=== PATIENT | female | born 1980 | race Caucasian/White ===

== ENCOUNTER 2019-03-06 00:09 | Outpatient (CLI) | payer BC, SELFPAY ==
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
[2019-03-06 10:39] LABS: Potassium 3.8 mmol/L (3.5-5.1)
== END 2019-03-06 00:29 ==
PROVIDERS: PCP Nurse Practitioner Adult Health; Visit Provider Nurse Practitioner Adult Health
DX: R00.2 Palpitations (principal); R00.0 Tachycardia, unspecified; E87.6 Hypokalemia
CPT/HCPCS: 36415; 84132; 93017

== ENCOUNTER 2019-09-25 16:23 | Emergency (ER) | payer BC, SELFPAY ==
[2019-09-25 16:25] VITALS: BP 126/89; PULSE 68; RESP 18; TEMP 36.4; O2SAT 99
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
--- NOTE | 2019-09-25 16:55 | ED.GENADUL_ITS ---
Discharge Plan Disposition Patient Disposition: HOME Condition: Stable Discharge Details Chief Complaint: Seizure Clinical Impression: Complex partial seizure disorder Primary Care Provider: Monserrat Bennett ED Provider: Eh Domínguez Home Meds and New Rx's Prescriptions: New lorazepam [Ativan] 0.5 mg tablet 0.5 mg PO QHS PRN (Reason: sleep) Qty: 1 RF: 1 Continued arnica 20 % Tincture RF: 0 Discharge Instructions Instructions: Recurrent Seizures in Adults (ED) Additional Instructions: May use single Ativan at bedtime, may take with Arnica. Do not take with alcohol. Follow-up with neurology in clinic as discussed. We will ask care management to assist with this referral. Return for progressive symptoms, or any other acute/emergent concern. Medical Decision Making 39-year-old female states that increased dressed in her life recently. She is a history of partial complex seizure which she describes as a sensation of intermittent aura with occasional word finding difficulty, but without syncope/incontinence/tonic clonic movement. States this is been a pattern for her in adulthood. Previously seen by neurology at [facility] and underwent unremarkable MRI. No previous antiseizure medications. She has recently started to take Arnica. Her vital signs are normal, her neurologic exam is within normal limits and there is no evidence of physical illness. Do think she likely has increased stress and possible minor partial seizure disorder. We will trial single dose of 0.5 mg of Ativan at bedtime tonight. Do not feel that there is an indication tonight to initiate long-term antiepileptic, but do feel that she will benefit from consultation and we will ask her to follow-up with neurology/make the referral. She will return for progression of symptoms, development of headache, or any other acute concerns. [facility] General Mode of arrival: ambulatory . Date/Time Provider Initiated Documentation: 09/25/19 16:39 . Limitations to Documentation: no limitations . Information obtained by: patient . History of Present Illness 39 year old F presents to the emergency department with the chief complaint of Partial complex seizure, described as mild, Patient reports no radiation. Patient started experiencing this day(s) and it has been intermittent. No relieving factors improve symptom(s), No exacerbating factors reported . Patient notes other (No tonic-clonic movements); denies confusion, fever/chills, headaches, malaise, shortness of breath, syncope and weakness. Patient did receive the following treatments prior to arrival, none Related Data Home Medications Medication Instructions Recorded Confirmed arnica 09/25/19 lorazepam [Ativan] 0.5 mg PO QHS PRN #1 tab 09/25/19 Previous Rx's Medication Instructions Recorded lorazepam [Ativan] 0.5 mg PO QHS PRN #1 tab 09/25/19 Allergies Allergy/AdvReac Type Severity Reaction Status Date / Time clindamycin Allergy Severe Anaphylaxsi Unverified 09/25/19 16:30 s Penicillins Allergy Intermediate Hives Unverified 09/25/19 16:30 Sulfa (Sulfonamide Allergy Skin Rash Unverified 09/25/19 16:30 Antibiotics) General Stated Complaint: Seizure DINO: 3 Review of Systems Narrative: Increased stress due to financial strain, 8 systems reviewed and otherwise negative. [facility] Social History Smoking/Tobacco Use Status: Former Tobacco Use Drug use: Never Substance use type: does not use Exam Narrative Exam Narrative: GEN: awake, alert, oriented 3. Pleasant, well groomed, interactive. HEAD: Normocephalic, atraumatic ENT: Mucous membranes moist, oropharynx unremarkable, External ear exam unremarkable EYES: PERRL, EOMI NECK: Full ROM, no MARIAJOSE, no menigismus CHEST/RESP: Nontender, clear to auscultation bilateral, no wheeze/rhonchi/rales CARDIOVASCULAR: RRR, no murmur, rub fidel. 2+ Rad pulse bilateral ABDOMEN: Soft, nontender, no mass. +Bowel sounds EXT: Full ROM, no edema, no rash Neuro: Grossly normal neurologic exam, conversant, interactive. Cranial nerves II through XII intact, [id number] intact, Romberg negative, motor graded 5 out of 5 throughout. Psych: Speech fluent, thoughts congruent, affect normal Course Vital Signs Vital signs: Vital Signs Temperature 36.4 C L 09/25/19 16:25 Pulse 68 09/25/19 16:25 Respiratory Rate 18 09/25/19 16:25 Blood Pressure 126/89 09/25/19 16:25 Pulse Oximetry 99 09/25/19 16:25 Temperature 36.4 C L 09/25/19 16:25 Temperature Source Skin 09/25/19 16:25 Pulse 68 09/25/19 16:25 Respiratory Rate 18 09/25/19 16:25 Respiratory Effort Non-Labored 09/25/19 16:37 Respiratory Depth Normal 09/25/19 16:37 Respiratory Pattern Normal 09/25/19 16:37 Blood Pressure 126/89 09/25/19 16:25 Blood Pressure Position Sitting 09/25/19 16:25 Pulse Oximetry 99 09/25/19 16:25 Oxygen Delivery Method Room Air 09/25/19 16:25 Oxygen Flow Rate 0 09/25/19 16:25 Pain Level 0 09/25/19 16:25
[2019-09-25 17:08] VITALS: BP 130/88; PULSE 68; O2SAT 96
--- NOTE | 2019-09-25 17:11 | NUR.NOTE ---
Nursing Note: Faxed to [facility] Neurology referral for follow up. Mahi Salazar.
== END 2019-09-25 17:11 | disposition home or self-care (01) ==
PROVIDERS: Emergency Provider Emergency Medicine; PCP Nurse Practitioner Adult Health
DX: G40.209 Localization-related (focal) (partial) symptomatic epilepsy and epileptic syndromes with complex partial seizures, not intractable, without status epilepticus (principal)
CPT/HCPCS: 99283

== ENCOUNTER 2020-09-01 20:03 | Emergency (ER) | payer MEDICAID, SELFPAY ==
--- NOTE | 2020-09-01 20:00 | DI.CT_ITS ---
EXAM: CT RENAL COLIC WO CLINICAL HISTORY: left flank pain, r/o stone, divertics. TECHNIQUE: Imaging Protocol: Axial computed tomography images with coronal and sagittal reformatted images were created and reviewed. COMPARISON: No exams were available for comparison FINDINGS: ABDOMEN: Lung Bases: Normal where visualized. Liver: Normal density. No measurable mass. Gallbladder and biliary tract: There is a 1.7 cm calcified stone in the gallbladder. No biliary duct al dilatation. No inflammatory signs around the gallbladder. Pancreas: Normal density, no abnormal calcifications or inflammatory process. Spleen: Normal. Kidneys: Normal size, contour and axis.There is a 7 mm stone at the left UPJ. It causes moderate hyd ronephrosis. No masses seen. Adrenal glands: No mass is seen. Lymph nodes: Within normal limits. Abdominal Aorta: Abdominal portion non-dilated. PELVIS: Bladder:Symmetric distention, no gross wall thickening. Bowel: No obstruction or bowel wall thickening. Appendix is unremarkable. Peritoneal cavity: No ascites, collection or mesenteric inflammatory response Reproductive organs: There is a small amount of fluid seen within the endometrial canal which is like ly normal. Bones: Mild degenerative changes. Soft Tissues: Within normal limits. IMPRESSION: 1. 7 mm left UPJ stone causing moderate hydronephrosis. 2. Cholelithiasis without signs to suggest acute cholecystitis. RADIATION DOSE DELIVERED: 618.6mGy.cm Total DLP DATA REPOSITORY: All CT scans at this facility are submitted to the National Radiology Data Registry (NRDR) Dose Index Registry (DIR) with the [employer] (A[employer]). RADIATION OPTIMIZATION: All CT scans at this facility use at least one of these dose optimization te chniques: automated exposure control; mA and/or kV adjustment per patient size (includes targeted exa ms where dose is matched to clinical indication); or iterative reconstruction.
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
[2020-09-01] MEDS: Normal Saline 1,000 ML 1000 ML IV (20:20)
[2020-09-01 20:29] VITALS: BP 125/82; PULSE 65; RESP 18; TEMP 36.6; O2SAT 98
[2020-09-01 20:33] LABS: Abs Immature Grans 0.02 10^3/uL (0.0-0.06); Absolute Basophil Count 0.06 10^3/uL (0.0-0.2); Absolute Eosinophil Count 0.39 10^3/uL (0.0-0.7); Absolute Lymphocyte Count 2.24 10^3/uL (1.2-3.4); Absolute Monocyte Count 0.53 10^3/uL (0.1-0.8); Absolute Neutrophil Count 7.04 10^3/uL (1.2-6.7); Basophils % 0.6; Eosinophils % 3.8; HCT 36.1 % (36.0-46.0); HGB 12.3 g/dL (11.2-15.7); Immature Grans % 0.2; Lymphocytes % 21.8; MCH 32.2 pg (27.0-33.0); MCHC 34.1 % (32.0-36.0); MCV 94.5 fL (80-95); MPV 11.2 fL (8.0-11.0); Monocytes % 5.2; Neutrophils % 68.4; Nucleated RBC 0 %; Platelet Count 158 10^3/uL (130-400); RBC 3.82 10^6/uL (3.93-5.22); RDW 11.9 % (11.7-14.6); RDW-SD 41.7 fL; WBC 10.28 10^3/uL (4.4-10.8)
[2020-09-01] MEDS: Ketorolac 30 MG/ML VIAL IVP (20:35)
[2020-09-01 20:40] LABS: Bilirubin Negative (Negative); Blood Large (Negative); Clarity Cloudy (Clear); Glucose Negative (Negative); Ketones Trace mg/dL (Negative); Leukocyte Esterase Negative (Negative); Nitrite Negative (Negative); Specific Gravity >= 1.030 (1.005-1.025); Urobilinogen 0.2 EU/dL (Up TO 0.2); pH 5.5 (5-8)
[2020-09-01 20:45] LABS: ALT 37 U/L (14-59); AST 23 U/L (15-37); Albumin 3.7 g/dL (3.4-5.0); Alkaline Phosphatase 64 U/L (46-116); Anion Gap 7.3 mmol/L (3-11); BUN 13 mg/dL (7-18); Bilirubin, Total 0.2 mg/dL (0.2-1.0); CO2 25.7 mmol/L (21.0-32.0); Calcium 8.6 mg/dL (8.5-10.1); Chloride 104 mmol/L (98-107); Glucose 121 mg/dL (74-106); Potassium 3.6 mmol/L (3.5-5.1); Sodium 137 mmol/L (136-145); Total Protein 6.8 g/dL (6.4-8.2)
[2020-09-01 20:50] LABS: Bacteria Rare HPF (Negative); C & S Indicated? No; Casts Negative LPF (Negative); Crystals Negative HPF (Negative); Epithelial Cells Few HPF (Negative); Mucus Negative (Negative); RBC 20-50 HPF (0-2)
--- NOTE | 2020-09-01 21:34 | DI.VRAD_ITS ---
PROCEDURE INFORMATION: Exam: CT Abdomen And Pelvis Without Contrast Exam date and time: 09/01/2020 9:00 PM Age: 39 years old Clinical indication: Other: L flank pain; Patient HX: Sudden onset left flank pain TECHNIQUE: Imaging protocol: Computed tomography of the abdomen and pelvis without contrast. Radiation optimization: All CT scans at this facility use at least one of these dose optimization techniques: automated exposure control; mA and/or kV adjustment per patient size (includes targeted exams where dose is matched to clinical indication); or iterative reconstruction. COMPARISON: No relevant prior studies available. FINDINGS: Mediastinal space: There is small hiatal hernia. Liver: Normal. No mass. Gallbladder and bile ducts: There is 1.7 cm calcified stone in gallbladder. There is no signs of acute inflammation. Pancreas: Normal. No ductal dilation. Spleen: Normal. No splenomegaly. Adrenal glands: Normal. No mass. Kidneys and ureters: There is mild to moderate left hydronephrosis with 7mm stone noted in the left proximal ureter at pelvic ureteral junction. There is mild stranding adjacent to the left renal pelvis. Urinary bladder is unremarkable. Stomach and bowel: Unremarkable. No obstruction. No mucosal thickening. Appendix: Appendix is normal. Intraperitoneal space: Unremarkable. No free air. No significant fluid collection. Vasculature: Unremarkable. No abdominal aortic aneurysm. Lymph nodes: Unremarkable. No enlarged lymph nodes. Urinary bladder: See Kidneys and ureters finding. Reproductive: Uterus is elongated and anteverted. There is fluid within endometrial cavity which could be normal. There is air possibly in the posterior fornix of vagina. Adnexa are grossly unremarkable. Bones/joints: No acute fracture. Soft tissues: Unremarkable. IMPRESSION: 1. 7 mm obstructive stone in the proximal left ureter at the pelvic ureter junction with mild to moderate proximal left hydronephrosis. There is mild fat stranding, likely due to associated inflammation. 2. Cholelithiasis without signs of acute inflammation. Dictated and Authenticated by: Jorge L Hoover MD. Ordering:LONG Simons MD
== END 2020-09-01 22:55 | disposition home or self-care (01) ==
PROVIDERS: Emergency Provider Student in an Organized Health Care Education/Training Program; PCP Nurse Practitioner Adult Health
DX: N20.0 Calculus of kidney (principal)
CPT/HCPCS: 80053; 81025; 96361; 96374; 99285; 74176; 81003; 81015; 85025; 99284; J1885

== ENCOUNTER 2020-11-09 16:49 | Emergency (ER) | payer MEDICAID, SELFPAY ==
[2020-11-09 16:59] VITALS: BP 125/84; PULSE 68; RESP 16; TEMP 36.5; O2SAT 100
--- NOTE | 2020-11-09 17:00 | DI.CT_ITS ---
EXAM: CT RENAL COLIC WO CLINICAL HISTORY: Left Flank pain, Hx kidney stone. TECHNIQUE: Imaging Protocol: Axial computed tomography images with coronal and sagittal reformatted images were created and reviewed. CONTRAST MATERIAL: Noncontrast COMPARISON: CT CT RENAL COLIC WO from 09/01/[address] RENAL COLIC WO from 09/01/2020 FINDINGS: ABDOMEN: Lung Bases: Normal where visualized. Liver: Normal attenuation. No measurable mass. Gallbladder and biliary tract: Calcified stone, unchanged from previous exam. There is no abnormal g allbladder distention or wall thickening.. Pancreas: Normal density, no calcifications or inflammatory process. Spleen: Normal. Kidneys: Normal size, contour and axis. A stone is again noted in the proximal left ureter measuring 7 millimeters. This causes moderate left hydronephrosis. Mild debris is seen within the left renal pelvis. There is stable dilatation of the left renal pelvis. There is no perinephric collection or surrounding inflammation. No masses seen. Adrenal glands: No masses seen. Abdominal Aorta: Abdominal portion non-dilated. PELVIS: Bladder: Symmetric distention, no gross wall thickening. Bowel: No obstruction or bowel wall thickening. Peritoneal cavity: No ascites, collection or mesenteric inflammatory response. A small amount of inc reased density is questioned in the appendix ,however there is no evidence of inflammation. Bones: Within normal limits. IMPRESSION: No significant change in 7 millimeters stone in the proximal left ureter causing moderate hydronephro sis. No new abnormalities are seen. RADIATION DOSE DELIVERED: 559.26mGy.cm Total DLP DATA REPOSITORY: All CT scans at this facility are submitted to the National Radiology Data Registry (NRDR) Dose Index Registry (DIR) with the [employer] (A[employer]). RADIATION OPTIMIZATION: All CT scans at this facility use at least one of these dose optimization te chniques: automated exposure control; mA and/or kV adjustment per patient size (includes targeted exa ms where dose is matched to clinical indication); or iterative reconstruction.
[2020-11-09 17:07] LABS: Bilirubin Negative (Negative); Blood Large (Negative); Clarity Cloudy (Clear); Glucose Negative (Negative); Ketones 15 mg/dL (Negative); Leukocyte Esterase Negative (Negative); Nitrite Negative (Negative); Specific Gravity >= 1.030 (1.005-1.025); Urobilinogen 0.2 EU/dL (Up TO 0.2); pH 5.5 (5-8)
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
[2020-11-09 17:15] LABS: Bacteria Few HPF (Negative); RBC >50 HPF (0-2)
[2020-11-09 17:16] LABS: Casts Negative LPF (Negative); Crystals Negative HPF (Negative); Mucus Trace (Negative)
[2020-11-09 17:17] LABS: C & S Indicated? No; Epithelial Cells Moderate HPF (Negative)
--- NOTE | 2020-11-09 17:57 | DI.VRAD_ITS ---
PROCEDURE INFORMATION: Exam: CT Abdomen And Pelvis Without Contrast Exam date and time: 11/09/2020 5:25 PM Age: 40 years old Clinical indication: Abdominal pain TECHNIQUE: Imaging protocol: Computed tomography of the abdomen and pelvis without contrast. COMPARISON: CT RENAL COLIC WO 09/01/2020 10:02 PM FINDINGS: Liver: Normal. No mass. Gallbladder and bile ducts: There is redemonstration of rim calcified stone measuring up to 1.7 cm in the neck of the gallbladder. There is no pericholecystic fluid collection or gallbladder wall edema. Pancreas: Normal. No ductal dilation. Spleen: Normal. No splenomegaly. Adrenal glands: Normal. No mass. Kidneys and ureters: There is redemonstration of obstructive stone noted in the left proximal ureter measuring up to 7 mm. There is moderate left hydroureter and hydronephrosis. There is mild densities noted in the left renal pelvis which might reflect mild debris. Stomach and bowel: Unremarkable. No obstruction. No mucosal thickening. Appendix: Appendix is normal in size. There is minimal density noted in tip of the appendix which could reflect mild appendicolith. There is no inflammation. Intraperitoneal space: Unremarkable. No free air. No significant fluid collection. Vasculature: Unremarkable. No abdominal aortic aneurysm. Lymph nodes: Unremarkable. No enlarged lymph nodes. Urinary bladder: Unremarkable as visualized. Reproductive: Uterus and adnexa are normal. Bones/joints: Unremarkable. No acute fracture. Soft tissues: Unremarkable. IMPRESSION: 1. Obstructive stone measuring up to 7 mm in the left proximal ureter. This garcia also previously noted. There has been slight interval increase in moderate left proximal hydroureter and hydronephrosis. There are faint densities noted in the left renal pelvis which could reflect debris. There is stranding adjacent to the proximal left ureter and left renal pelvis which could be due to inflammation or associated infection. 2. Stable cholelithiasis without signs of acute inflammation. Dictated and Authenticated by: Jorge L Hoover MD. Ordering:LEROY Parrish MD
[2020-11-09 18:25] LABS: Abs Immature Grans 0.02 10^3/uL (0.0-0.06); Absolute Basophil Count 0.04 10^3/uL (0.0-0.2); Absolute Eosinophil Count 0.15 10^3/uL (0.0-0.7); Absolute Lymphocyte Count 1.34 10^3/uL (1.2-3.4); Absolute Monocyte Count 0.31 10^3/uL (0.1-0.8); Absolute Neutrophil Count 5.24 10^3/uL (1.2-6.7); Basophils % 0.6; Eosinophils % 2.1; HCT 37.3 % (36.0-46.0); HGB 12.5 g/dL (11.2-15.7); Immature Grans % 0.3; Lymphocytes % 18.9; MCH 31.7 pg (27.0-33.0); MCHC 33.5 % (32.0-36.0); MCV 94.7 fL (80-95); MPV 11.3 fL (8.0-11.0); Monocytes % 4.4; Neutrophils % 73.7; Nucleated RBC 0 %; Platelet Count 147 10^3/uL (130-400); RBC 3.94 10^6/uL (3.93-5.22); RDW 11.7 % (11.7-14.6); RDW-SD 40.7 fL
[2020-11-09] MEDS: Tamsulosin 0.4 MG CAPCR PO (18:30)
[2020-11-09 18:36] LABS: ALT 76 U/L (14-59); AST 44 U/L (15-37); Albumin 3.9 g/dL (3.4-5.0); Alkaline Phosphatase 55 U/L (46-116); Anion Gap 6.1 mmol/L (3-11); BUN 11 mg/dL (7-18); Bilirubin, Total 0.3 mg/dL (0.2-1.0); CO2 28.9 mmol/L (21.0-32.0); CREATININE 0.81 mg/dL (0.55-1.02); Calcium 8.8 mg/dL (8.5-10.1); Chloride 103 mmol/L (98-107); Glucose 123 mg/dL (74-106); Potassium 3.5 mmol/L (3.5-5.1); Sodium 138 mmol/L (136-145)
[2020-11-09] MEDS: Ketorolac 30 MG/ML VIAL IVP (19:06)
[2020-11-09] MEDS: Ketorolac 10 MG TAB PO (19:36)
[2020-11-09] MEDS: Ondansetron O.D.T. 4 MG TABEF PO (19:36)
[2020-11-09] MEDS: Ketorolac 10 MG TAB 20 MG PO (20:05)
--- NOTE | 2020-11-10 06:03 | NUR.NOTE ---
Referral faxed to Urology for follow up care regarding todays visit, Nursing Note:
== END 2020-11-09 20:10 | disposition home or self-care (01) ==
PROVIDERS: Emergency Provider Registered Nurse Emergency; PCP Nurse Practitioner Adult Health
DX: N13.2 Hydronephrosis with renal and ureteral calculous obstruction (principal)
CPT/HCPCS: 36415; 80053; 81025; 96374; 99284; 74176; 81003; 81015; 85025; J1885

== ENCOUNTER 2020-12-09 01:39 | Outpatient (CLI) | payer MEDICAID, SELFPAY ==
--- NOTE | 2020-12-09 09:00 | DI.US_ITS ---
EXAM: US RENAL CLINICAL HISTORY: left ureteral stone N13.2 HYDRONEPHROSIS W/ RENAL AND URETERAL OBSTRUCTION. TECHNIQUE: Jang scale, color and spectral Doppler were used. COMPARISON: CT CT RENAL COLIC WO from 11/09/2020 FINDINGS: Renal size in cm: Right: 9.2. Left: 11.7. Echogenicity: Normal. Hydronephrosis: No. Cyst or mass: No. Nephrolithiasis: There is a question of a 4 mm echogenic focus in the midpole of the left kidney whic h may represent a nonobstructing stone. Other findings: None. Bladder:Normal. Ureteral jets: Right: Visualized and unremarkable. Left: Visualized and unremarkable. Prevoid vol:200 cc Postvoid vol:0 cc Renal color flow: Symmetric and within normal limits. IMPRESSION: 1. No evidence of hydronephrosis. 2. 4 mm echogenic focus in the midpole of the left kidney which may represent a nonobstructing stone. DATA REPOSITORY:
== END 2020-12-09 01:40 | disposition home or self-care (01) ==
LOC: DI 01:39
PROVIDERS: PCP Nurse Practitioner Adult Health; Visit Provider Nurse Practitioner Gerontology
DX: N20.1 Calculus of ureter (principal)
CPT/HCPCS: 76770

== ENCOUNTER 2021-02-11 17:45 | Emergency (ER) | payer MEDICAID, SELFPAY ==
[2021-02-11] VITALS (11 sets, daily range): BP systolic 117–139; BP diastolic 67–87; PULSE 60–104; RESP 16–18; TEMP 36.4; O2SAT 96–100
--- NOTE | 2021-02-11 17:56 | W.ED.GENAD ---
Discharge Plan Disposition Patient Disposition: HOME Condition: Stable Discharge Details Clinical Impression: Kidney stone Primary Care Provider: Monserrat Bennett ED Provider: Claudia Sal Home Meds and New Rx's Prescriptions: New ondansetron 4 mg tablet,disintegrating 4 mg PO TID PRN (Reason: nausea and vomiting) Qty: 6 RF: 0 tramadol 50 mg tablet 50 mg PO TID PRN (Reason: pain) Qty: 10 RF: 0 Continued B-complex with vitamin C Tablet 1 tab PO DAILY RF: 0 ascorbic acid (vitamin C) 250 mg tablet 250 mg PO DAILY RF: 0 magnesium 200 mg tablet 200 mg PO HS RF: 0 ibuprofen 200 mg Tablet 400 mg PO Q6H PRNRF: 0 ketorolac 10 mg tablet 10 mg PO TID PRN PRNRF: 0 Discharge Instructions Instructions: Kidney Stones (ED) Additional Instructions: Drink plenty of fluids and get plenty of rest. Take your ketorolac that you have at home as needed and directed for pain. Take the tramadol for pain not relieved with ketorolac or Tylenol. Take the Zofran as needed and directed for nausea and vomiting. Call Dr. Duong's office on to schedule a follow-up appointment for reevaluation. Return immediately to the emergency department if you develop any worsening or new concerning symptoms such as persistent pain, vomiting, fever or any other concerns. Referrals: Leonidas Duong MD [ [facility] STAFF PHYSICIAN] - Discharge Data Discharge Date/Time-TO BE ENTERED AT DEPARTURE: 02/11/21 21:45 Discharge Physician: Claudia Sal Medical Decision Making 40-year-old female presents with left flank pain similar to previous kidney stones for the past hour. Vitals within normal limits. Patient appears uncomfortable. Abdomen is soft but tender in the suprapubic region. She has no CVA tenderness. Suspect most likely kidney stone. Patient is agreeable with plan for CT. She is referred for labs and imaging. As she vomited shortly after her oral Toradol at home, will give a dose of Toradol 15 mg IV x1 and Zofran and fluids and reassess. Labs and imaging reviewed. Normal white blood cell count and renal function. Urinalysis negative for infection. Case discussed with Dr. Duong who reviewed CT imaging. States he previously noted 7 and later stone has now migrated down from the pelvis to the UV junction. If patient's pain is tolerated, she can be discharged home with plan for follow-up with Dr. Duong in the office in 2 days. Patient reassessed and she states her pain is returning. She states she is not on any narcotic pain medication. We will give a dose of IV Tylenol. Patient states she cannot take Flomax due to it causing seizures. Will give a dose of IV Tylenol and reassess. Patient states she would rather hold on narcotics at this time. Patient reassessed and pain still present. She states nausea returning. Will give a dose of morphine IV and Phenergan and another dose of IV fluids and reassess. Patient reassessed and she vomited right after the Compazine but states her nausea is now better. She declined the IV morphine. Discussed with patient that as she seems uncomfortable, would recommend admission for IV fluids, IV antiemetics and IV pain medication. Patient states she is hesitant to take any IV pain medication and prefer to go home. Offered a dose of oral pain medication here but she declined. Patient states she would prefer not to have oxycodone but is agreeable with tramadol. She was given bottle of tramadol and Zofran to go and prescription sent electronically to her pharmacy. Patient placed on urology follow-up list for reevaluation. Usual and customary return precautions given prior to discharge. Just prior to discharge, patient began dry heaving again. I discussed with patient consideration for admission for IV medication and monitoring but she is still declining. She states she does not want any additional IV antiemetics at this time and would not want any IV antiemetics or IV narcotic medication if she stayed in the hospital. We will send with 2 tabs of Ativan to help her sleep tonight if needed. Medical Records Medical records reviewed: Yes I reviewed the patient's medical records. Imaging Data Radiologic Study: Radiologist's impression: CT Abdomen And Pelvis Without Contrast Exam date and time: 02/11/2021 6:13 PM Age: 40 years old Clinical indication: Other: L flank pain, R/O kidney stone; Prior surgery; Surgery date: 6+ months; Surgery type: 2 times TECHNIQUE: Imaging protocol: Computed tomography of the abdomen and pelvis without contrast. Radiation optimization: All CT scans at this facility use at least one of these dose optimization techniques: automated exposure control; mA and/or kV adjustment per patient size (includes targeted exams where dose is matched to clinical indication); or iterative reconstruction. COMPARISON: CT RENAL COLIC WO 11/09/2020 5:26 PM FINDINGS: Lungs: The visualized lung santamaria show mild bibasilar atelectasis. Liver: Normal size and homogeneous density. No liver mass is seen. Gallbladder and bile ducts: There is an 18 mm laminated gallstone in the gallbladder neck. No evidence of gallbladder wall thickening or pericholecystic fluid. Pancreas: Normal size and homogeneous density. No ductal dilation. Spleen: Normal. No splenomegaly. Adrenal glands: Normal. No mass. Kidneys and ureters: There is mild left hydronephrosis and hydroureter down to the left ureterovesical junction, where there is a partially obstructing 6 x 4 mm calculus (series 3, image 736; series 4, image 58). Stomach and bowel: There is no evidence of small bowel or colonic obstruction. Appendix: No evidence of appendicitis. Intraperitoneal space: No free air. No significant fluid collection. Vasculature: No abdominal aortic aneurysm. Lymph nodes: No enlarged retroperitoneal or mesenteric lymph nodes. Urinary bladder: The bladder shows a normal contour and is free of calcific opacities. Reproductive: In the right ovary, there is a 2.2 x 1.9 x 1.5 cm cyst. Bones/joints: At L1-L2, there are degenerative disc disease, anterior and posterior osteophytes. Soft tissues: Unremarkable. IMPRESSION: 1. A partially obstructing calculus at the left UVJ. 2. Cholelithiasis without evidence of acute cholecystitis. 3. A right ovarian cyst. Lab Data Lab results reviewed: Yes I reviewed the patient's lab results. Labs: Laboratory Tests Range/Units 02/11/21 02/11/21 02/11/21 18:00 18:19 18:19 WBC (4.4-10.8) 10^3/uL 8.86 RBC (3.93-5.22) 10^6/uL 4.11 Hgb (11.2-15.7) g/dL 12.9 Hct (36.0-46.0) % 38.4 MCV (80-95) fL 93.4 MCH (27.0-33.0) pg 31.4 MCHC (32.0-36.0) % 33.6 RDW (11.7-14.6) % 11.9 Plt Count (130-400) 10^3/uL 147 MPV (8.0-11.0) fL 11.1 H Immature Gran % 0.3 Neutrophils % 76.0 Lymphocytes % 15.7 Monocytes % 4.6 Eosinophils % 2.7 Basophils % 0.7 Nucleated RBC % % 0 Absolute Neutrophils (1.2-6.7) 10^3/uL 6.73 H Absolute Lymphocytes (1.2-3.4) 10^3/uL 1.39 Absolute Monocytes (0.1-0.8) 10^3/uL 0.41 Absolute Eosinophils (0.0-0.7) 10^3/uL 0.24 Absolute Basophils (0.0-0.2) 10^3/uL 0.06 Sodium (136-145) mmol/L 142 Potassium (3.5-5.1) mmol/L 3.4 L Chloride (98-107) mmol/L 104 Carbon Dioxide (21.0-32.0) mmol/L 30.2 Anion Gap (3-11) mmol/L 7.8 BUN (7-18) mg/dL 10 Creatinine (0.55-1.02) mg/dL 0.8 Estimated GFR/1.73 m2 (mL/min/1.73m2) >= 60.00 Glucose (74-106) mg/dL 108 H Calcium (8.5-10.1) mg/dL 8.9 Total Bilirubin (0.2-1.0) mg/dL 0.3 AST (15-37) U/L 28 ALT (14-59) U/L 51 Alkaline Phosphatase (46-116) U/L 55 Total Protein (6.4-8.2) g/dL 7.1 Albumin (3.4-5.0) g/dL 3.9 Lipase (73-393) U/L 90 Urine Color (Yellow) Yellow Urine Clarity (Clear) Clear Urine pH (5-8) 6.5 Ur Specific [place] (1.005-1.025) >= 1.030 H Urine Protein (Negative) mg/dL Negative Urine Ketones (Negative) mg/dL Negative Urine Blood (Negative) Trace-intact H Urine Nitrite (Negative) Negative Urine Bilirubin (Negative) Negative Urine Urobilinogen (Up TO 0.2) EU/dL 0.2 Ur Leukocyte Esterase (Negative) Negative Urine RBC (0-2) HPF 5-10 H Urine WBC (0-5) HPF Negative Ur Epithelial Cells (Negative) HPF Many Urine Crystals (Negative) HPF Negative Urine Bacteria (Negative) HPF Few Urine Mucus (Negative) Moderate Ur Culture Indicated? No Urine Glucose (Negative) mg/dL Negative HPI General Mode of arrival: ambulatory. Date/Time Provider Initiated Documentation: 02/11/21 17:55. Limitations to Documentation: no limitations. Information obtained by: patient. HPI Narrative: Patient is a 40-year-old female with a history of kidney stones who presents to the ED with a complaint of left flank pain with radiation to her left groin for the past hour. Patient states the pain feels similar to her previous kidney stones. Patient states she was diagnosed with a 7 mm long kidney stone a few months ago but was never noted to pass it but states her pain resolved. She states she is followed by Carlota Urban at urology. Patient took 10 mg of Toradol p.o. at home prior to arrival but vomited shortly after so does not think she completed the medication. Patient states she has vomited a few times and admits to nausea now. She denies any fever but does admit to urinary frequency and urgency. Related Data Home Medications Medication Instructions Recorded Confirmed B-complex with vitamin C 1 tab PO DAILY 04/15/20 02/11/21 ascorbic acid (vitamin C) 250 mg 250 mg PO DAILY 04/15/20 02/11/21 tablet magnesium 200 mg tablet 200 mg PO HS 04/15/20 02/11/21 ibuprofen 400 mg PO Q6H PRN 11/09/20 02/11/21 ketorolac 10 mg PO TID PRN PRN 02/11/21 02/11/21 ondansetron 4 mg PO TID PRN #6 tab 02/11/21 tramadol 50 mg PO TID PRN #10 tab 02/11/21 Previous Rx's Medication Instructions Recorded ondansetron 4 mg PO TID PRN #6 tab 02/11/21 tramadol 50 mg PO TID PRN #10 tab 02/11/21 Allergies Allergy/AdvReac Type Severity Reaction Status Date / Time clindamycin Allergy Severe Anaphylaxsi Unverified 02/11/21 17:53 s Penicillins Allergy Intermediate Hives Unverified 02/11/21 17:53 Sulfa (Sulfonamide Allergy Skin Rash Unverified 02/11/21 17:53 Antibiotics) tamsulosin [From Flomax] AdvReac Severe Verified 02/11/21 17:53 General Stated Complaint: FlankPain DINO: 3 Review of Systems All systems reviewed & are unremarkable except as noted in HPI and below Constitutional Constitutional: Reports as per HPI, Denies chills and Denies fever(s) Eyes Eyes: Denies blurry vision ENT Ears, Nose, Mouth, and Throat: Denies dizziness, Denies sore throat and Denies throat swelling Cardiovascular Cardiovascular: Denies chest pain and Denies dyspnea Respiratory Respiratory: Denies cough and Denies dyspnea Gastrointestinal Gastrointestinal: Reports abdominal pain, Denies diarrhea and Denies vomiting Genitourinary Genitourinary: Denies hematuria, Denies dysuria, Reports flank pain and Reports urinary urgency Musculoskeletal Musculoskeletal: Denies back pain and Denies numbness Integumentary/Breasts Skin/Breast: Denies lesions and Denies rash Neurologic Neurologic: Denies dizziness, Denies localized weakness and Denies numbness Allergic/Immunologic Allergic/Immunologic: Denies throat swelling [facility] Medical History (Updated 02/11/21 @ 20:47 by Claudia Sal DO) Focal epilepsy Kidney stone Migraine headache without aura Thrombocytopenia Surgical History S/P section x2 Family History Father Hypertension Brother Asthma Social History Smoking/Tobacco Use Status: Current every day Smoking risk assessment performed?: Yes Alcohol Intake: current Alcohol Intake frequency: holidays/special occasions only Drug use: Never Substance use type: does not use Household members: significant other and children Number of Children: 2 current occupation: Massage Therapist Seatbelt use: always Do you feel safe at home: Yes Do you feel safe in your relationship?: Yes Exam Const General: cooperative, uncomfortable and no acute distress Orientation: alert, awake and oriented x3 HENMT Head: normal to inspection Face and sinus: normal facial exam Eyes General: appearance normal, both eyes and all related structures EOM: EOM intact bilaterally Neck Neck: normal visual inspection and No submandibular swelling Lymphatic: no lymphadenopathy noted Chest Chest: normal inspection of the chest and no tenderness Resp Effort & Inspection: normal respiratory effort and able to speak in complete sentences Auscultation: clear to auscultation bilaterally Cardio Rate: regular rate Rhythm: regular rhythm GI Inspection: normal to inspection Palpation: soft, not firm, not rigid and tender suprapubicly Auscultation: normal bowel sounds Back/Spine/Pelvis Back: no CVA tenderness Skin General skin exam: no rashes or lesions noted Neuro General: patient alert, patient awake and patient oriented x3 Cognition: normal cognition Speech: speech normal Motor: muscle tone normal throughout Sensory Exam: no sensory deficits noted Extrem General: normal to inspection, full ROM, capillary refill normal, no calf tenderness bilaterally and no edema Psych Appearance: grossly normal Mental Status: mental status grossly normal Speech and Movement: speech and movement normal Affect: normal affect Course Vital Signs Vital signs: Vital Signs Temperature 97.5 F L 02/11/21 17:48 Pulse 66 02/11/21 17:48 Respiratory Rate 18 02/11/21 17:48 Blood Pressure 139/87 02/11/21 17:48 Pulse Oximetry 98 02/11/21 17:48 Temperature 97.5 F L 02/11/21 17:48 Temperature Source Temporal Artery Scan 02/11/21 17:48 Pulse 66 02/11/21 17:48 Respiratory Rate 18 02/11/21 17:48 Respiratory Effort Non-Labored 02/11/21 17:52 Blood Pressure 139/87 02/11/21 17:48 Blood Pressure Position Sitting 02/11/21 17:48 Pulse Oximetry 98 02/11/21 17:48 Oxygen Delivery Method Room Air 02/11/21 17:48 Oxygen Flow Rate 0 02/11/21 17:48 Pain Level 9 02/11/21 17:48
--- NOTE | 2021-02-11 18:00 | DI.CT_ITS ---
EXAM: CT RENAL COLIC WO CLINICAL HISTORY: L flank pain, r/o kidney stone. TECHNIQUE: Imaging Protocol: Axial computed tomography images with coronal and sagittal reformatted images were created and reviewed CONTRAST MATERIAL: Intravenous: none Oral: None COMPARISON: CT CT RENAL COLIC WO from 11/09/2020 FINDINGS: VISUALIZED LUNG BASES: No nodules nor pleural effusions evident. ABDOMEN: There is no ascites. LIVER: There are no obvious focal hepatic lesions evident of this noninfused study. GALLBLADDER/BILIARY: Single large gallstone at the gallbladder neck level. This calculus was evident on the prior November 1999 study. There is no evidence of acute cholecystitis. No dilatation of the biliary tree. PANCREAS: No evidence of pancreatic mass nor dilatation of the pancreatic duct. SPLEEN: Spleen is not enlarged. No obvious intrasplenic lesions. ADRENALS: There are no significant adrenal masses. KIDNEYS:Right kidney appears unremarkable. The previously present calculus at the right ureteropelvi c junction is now located just at and at the left ureterovesical junction, having migrated distally f rom the UPJ I seen on the prior November 2020 study. There is significant dilatation of the left uret er and collecting system above this level. No other calculi are seen in the left ureter nor in the n ondistended urinary bladder. This calculus measures approximately 6 x 4 millimeters.. ABDOMINAL AORTA: Abdominal aorta is not enlarged. LYMPH NODES: There is no retroperitoneal nor paraaortic adenopathy. ABDOMINAL WALL/GI: No evidence of significant anterior abdominal wall hernia. No bowel obstruction. PELVIS: LYMPH NODES: There is no intrapelvic nor inguinal adenopathy. GI: No evidence of appendicitis.No evidence of sigmoid diverticulitis. URINARY BLADDER: No calculi nor obvious masses evident REPRODUCTIVE: Uterus size unremarkable. Left adnexa unremarkable. There is a cyst in the right ovar y which measures 2 x 2 centimetres. There is a small amount of fluid in the dependent aspect of the pelvis. OSSEOUS: No significant osseous lesions. IMPRESSION: 1. Compared to the prior CT scan of 11/09/2020 the previously present obstructive 6 millimeter calcul us at the left ureteropelvic junction is no migrated distally to the left ureterovesical junction. T here is significant dilatation left ureter and left upper collecting system above this level. There are no other remaining calculi in the kidney. No calculi seen in the opposite-right kidney. 2. Cholelithiasis again noted. No evidence of acute cholecystitis. 3. 2 centimeter benign-appearing cyst in the right ovary noted and there is small amount of free flui d in the dependent aspect of the pelvis. RADIATION DOSE DELIVERED: 737.35mGy.cm Total DLP DATA REPOSITORY: All CT scans at this facility are submitted to the National Radiology Data Registry (NRDR) Dose Index Registry (DIR) with the [employer] (ACR). RADIATION OPTIMIZATION: All CT scans at this facility use at least one of these dose optimization te chniques: automated exposure control; mA and/or kV adjustment per patient size (includes targeted exa ms where dose is matched to clinical indication); or iterative reconstruction.
[2021-02-11 18:06] LABS: Bilirubin Negative (Negative); Blood Trace-intact (Negative); Clarity Clear (Clear); Glucose Negative (Negative); Ketones Negative (Negative); Leukocyte Esterase Negative (Negative); Nitrite Negative (Negative); Specific Gravity >= 1.030 (1.005-1.025); Urobilinogen 0.2 EU/dL (Up TO 0.2); pH 6.5 (5-8)
[2021-02-11 18:15] LABS: Bacteria Few HPF (Negative); C & S Indicated? No; Crystals Negative HPF (Negative); Epithelial Cells Many HPF (Negative); Mucus Moderate (Negative); WBC Negative HPF (0-5)
[2021-02-11] MEDS: Ketorolac 15 MG/ML VIAL IVP (18:26)
[2021-02-11] MEDS: Normal Saline 1,000 ML 1000 ML IV (18:26)
[2021-02-11] MEDS: Ondansetron 4 MG/2 ML VIAL IVP (18:26)
[2021-02-11 18:29] LABS: Abs Immature Grans 0.03 10^3/uL (0.0-0.06); Absolute Basophil Count 0.06 10^3/uL (0.0-0.2); Absolute Eosinophil Count 0.24 10^3/uL (0.0-0.7); Absolute Lymphocyte Count 1.39 10^3/uL (1.2-3.4); Absolute Monocyte Count 0.41 10^3/uL (0.1-0.8); Absolute Neutrophil Count 6.73 10^3/uL (1.2-6.7); Basophils % 0.7; Eosinophils % 2.7; HCT 38.4 % (36.0-46.0); HGB 12.9 g/dL (11.2-15.7); Immature Grans % 0.3; Lymphocytes % 15.7; MCH 31.4 pg (27.0-33.0); MCHC 33.6 % (32.0-36.0); MCV 93.4 fL (80-95); MPV 11.1 fL (8.0-11.0); Monocytes % 4.6; Nucleated RBC 0 %; Platelet Count 147 10^3/uL (130-400); RBC 4.11 10^6/uL (3.93-5.22); RDW 11.9 % (11.7-14.6); RDW-SD 41.2 fL; WBC 8.86 10^3/uL (4.4-10.8)
[2021-02-11 18:41] LABS: ALT 51 U/L (14-59); AST 28 U/L (15-37); Albumin 3.9 g/dL (3.4-5.0); Alkaline Phosphatase 55 U/L (46-116); Anion Gap 7.8 mmol/L (3-11); BUN 10 mg/dL (7-18); Bilirubin, Total 0.3 mg/dL (0.2-1.0); CO2 30.2 mmol/L (21.0-32.0); CREATININE 0.8 mg/dL (0.55-1.02); Calcium 8.9 mg/dL (8.5-10.1); Chloride 104 mmol/L (98-107); Glucose 108 mg/dL (74-106); Lipase 90 U/L (73-393); Potassium 3.4 mmol/L (3.5-5.1); Sodium 142 mmol/L (136-145); Total Protein 7.1 g/dL (6.4-8.2)
--- NOTE | 2021-02-11 19:21 | DI.VRAD_ITS ---
PROCEDURE INFORMATION: Exam: CT Abdomen And Pelvis Without Contrast Exam date and time: 02/11/2021 6:13 PM Age: 40 years old Clinical indication: Other: L flank pain, R/O kidney stone; Prior surgery; Surgery date: 6+ months; Surgery type: 2 times TECHNIQUE: Imaging protocol: Computed tomography of the abdomen and pelvis without contrast. Radiation optimization: All CT scans at this facility use at least one of these dose optimization techniques: automated exposure control; mA and/or kV adjustment per patient size (includes targeted exams where dose is matched to clinical indication); or iterative reconstruction. COMPARISON: CT RENAL COLIC WO 11/09/2020 5:26 PM FINDINGS: Lungs: The visualized lung santamaria show mild bibasilar atelectasis. Liver: Normal size and homogeneous density. No liver mass is seen. Gallbladder and bile ducts: There is an 18 mm laminated gallstone in the gallbladder neck. No evidence of gallbladder wall thickening or pericholecystic fluid. Pancreas: Normal size and homogeneous density. No ductal dilation. Spleen: Normal. No splenomegaly. Adrenal glands: Normal. No mass. Kidneys and ureters: There is mild left hydronephrosis and hydroureter down to the left ureterovesical junction, where there is a partially obstructing 6 x 4 mm calculus (series 3, image 736; series 4, image 58). Stomach and bowel: There is no evidence of small bowel or colonic obstruction. Appendix: No evidence of appendicitis. Intraperitoneal space: No free air. No significant fluid collection. Vasculature: No abdominal aortic aneurysm. Lymph nodes: No enlarged retroperitoneal or mesenteric lymph nodes. Urinary bladder: The bladder shows a normal contour and is free of calcific opacities. Reproductive: In the right ovary, there is a 2.2 x 1.9 x 1.5 cm cyst. Bones/joints: At L1-L2, there are degenerative disc disease, anterior and posterior osteophytes. Soft tissues: Unremarkable. IMPRESSION: 1. A partially obstructing calculus at the left UVJ. 2. Cholelithiasis without evidence of acute cholecystitis. 3. A right ovarian cyst. Dictated and Authenticated by: Francisco Lloyd MD. Ordering:SAM Taylor MD
[2021-02-11] MEDS: ACETAMINOPHEN 1,000 MG/100 ML BTL 400 MG IVPB (19:23)
--- NOTE | 2021-02-11 21:15 | NUR.NOTE ---
Nursing Note: referal to dr hayden to have patient call him by to follow up with kidney stone 02/11/21
--- NOTE | 2021-02-11 21:20 | NUR.NOTE ---
Nursing Note: Attempt to discharge patient. Patient stood up and began to vomit/dry heave. Discussed pro's and con's of staying and going, patient decided she would stay. Dr. Dietz informed and went in to talk with patient and patient has now decided to leave.
[2021-02-11] MEDS: LORazepam 0.5 MG TAB 1 MG PO (21:36)
[2021-02-11] MEDS: Ondansetron O.D.T. 4 MG TABEF, 3 TABS/BTL PO (21:38)
== END 2021-02-11 21:45 | disposition home or self-care (01) ==
PROVIDERS: Emergency Provider Physician Assistant; PCP Nurse Practitioner Adult Health
DX: N13.2 Hydronephrosis with renal and ureteral calculous obstruction (principal); N13.4 Hydroureter; R11.2 Nausea with vomiting, unspecified; Z87.442 Personal history of urinary calculi
CPT/HCPCS: 36415; 80053; 81025; 83690; 96361; 96367; 96374; 96375; 99284; 74176; 81003; 81015; 85025; 99285; J0131; J1885; J2405

== ENCOUNTER 2021-02-14 11:16 | Outpatient (CLI) | payer MEDICAID, SELFPAY ==
[2021-02-14 11:34] LABS: Source Nasal/Nares
[2021-02-14 16:50] LABS: COVID-19 PCR Negative (Negative)
== END 2021-02-14 11:17 | disposition home or self-care (01) ==
PROVIDERS: PCP Nurse Practitioner Adult Health; Visit Provider Urology
DX: Z20.822 Contact with and (suspected) exposure to COVID-19 (principal)
CPT/HCPCS: 87635

== ENCOUNTER 2021-02-17 06:51 | Day surgery (SDC) | payer MEDICAID, SELFPAY ==
[2021-02-17 06:52] VITALS: BP 112/79; PULSE 88; RESP 16; TEMP 36.8; O2SAT 97
--- NOTE | 2021-02-17 06:58 | HPE_ITS ---
Date of service: 02/17/21 Time of Service: 06:58 Assessment and Plan Assessment and plan (1) Left ureteral stone: Status: Acute Assessment and plan: Her stone has not passed in spite of 4 months of cons ervative management. The stone has migrated distally based on her last CT scan. We will move forward with ureteroscopic stone manipulation. History of Present Illness History of Present Illness Chief Complaint: Left ureteral stone Narrative: This is a 40-year-old woman who initially presented with a left flank pain back in September of last year. At that time, she was identified as having a left proximal ureteral stone. She had another mode of renal colic in November of this year and she was referred to urology. She was initially treated conservatively and her symptoms improved. She had a renal ultrasound which showed resolution of her hydronephrosis, but she never was able to pass her stone. She presented back to the emergency room this past week with another episode of left renal colic. Her stone is now at the ureterovesical junction. She presents now for stone manipulation. She has no known metabolic abnormalities such as hyperparathyroidism or gout. We have no previous stone analyses. Review of Systems Narrative: No fevers or chills No vision change or dysphasia No diabetes or thyroid dysfunction No shortness of breath, cough or hemoptysis No chest pain or palpitations Nausea. No hepatitis, ulcers, jaundice Hx seizures - last one 4 days ago. No strokes or peripheral neuropathy No bleeding disorders or anemia No gout PFSH Medical History (Updated 02/17/21 @ 06:59 by Leonidas Doung MD) Focal epilepsy Last seizure 02/13/21, pt states it was aggrivated by the medications she recieved in the ER Kidney stone Left ureteral stone Migraine headache without aura Thrombocytopenia pt. unaware of this diagnosis Surgical History S/P section x2 Family History Father Hypertension Brother Asthma Social History Smoking/Tobacco Use Status: Current every day Tobacco Type: cigarettes Smoking risk assessment performed?: Yes Alcohol Intake: current Alcohol Intake frequency: holidays/special occasions only Drug use: Rarely Substance use type: marijuana Household members: significant other and children Number of Children: 2 current occupation: Massage Therapist Seatbelt use: always Do you feel safe at home: Yes Do you feel safe in your relationship?: Yes Meds Allergies and Home Medications Allergies Allergy/AdvReac Type Severity Reaction Status Date / Time clindamycin Allergy Severe Anaphylaxsi Unverified 02/14/21 12:11 s Penicillins Allergy Intermediate Hives Unverified 02/14/21 12:11 Sulfa (Sulfonamide Allergy Skin Rash Unverified 02/14/21 12:11 Antibiotics) tamsulosin [From Flomax] AdvReac Severe Verified 02/14/21 12:11 tramadol AdvReac Verified 02/17/21 07:04 Home Medications Medication Instructions Recorded Confirmed Type B-complex with vitamin C 1 tab PO DAILY 04/15/20 02/17/21 History ascorbic acid (vitamin C) 250 mg 250 mg PO DAILY 04/15/20 02/17/21 History tablet magnesium 200 mg tablet 200 mg PO HS 04/15/20 02/17/21 History ibuprofen 400 mg PO Q6H PRN 11/09/20 02/17/21 History ketorolac 10 mg PO TID PRN PRN 02/11/21 02/17/21 History ondansetron 4 mg PO TID PRN #6 tab 02/11/21 02/17/21 Rx tramadol 50 mg PO TID PRN #10 tab 02/11/21 02/17/21 Rx Exam Const General: cooperative, comfortable and no acute distress Neck Neck: supple Resp Effort & Inspection: normal respiratory effort Auscultation: clear to auscultation bilaterally Cardio Rate: regular rate Rhythm: regular rhythm GI Palpation: soft and no masses Neuro General: patient alert, patient awake and patient oriented x3 COVID-19 Screening Have you, or household traveled for leisure in last 14 days?: No Had IN PERSON contact w/suspected or confirmed C-19 person: No
[2021-02-17] MEDS: Ciprofloxacin 500 MG TAB PO (07:26)
[2021-02-17] MEDS: Lactated Ringers 1,000 ML 80 ML IV (07:26)
[2021-02-17] MEDS: Lidocaine 2% Jelly 6 ML SYR (08:25)
[2021-02-17] MEDS: Omnipaque 300 MG/ML 50 ML BTL (08:25)
--- NOTE | 2021-02-17 08:38 | DI.RAD_ITS ---
EXAM: XR RETROGRADE IN OR CLINICAL HISTORY: retrograde pyleogram. TECHNIQUE: 2D digital imaging was performed. COMPARISON: No exams were available for comparison FINDINGS: Prostate was provided during urologic procedure. Radiologist not present. See procedure report for details. Total fluoroscopy time 70.6 seconds; Cumulative dose 2.86mGy IMPRESSION: DATA REPOSITORY: RADIATION DOSE DELIVERED:
--- NOTE | 2021-02-17 08:40 | W.PM.DSUDISC ---
Discharge Plan Disposition Patient Disposition: HOME Condition: Stable Discharge Details Reason For Visit: STONE Attending Provider: Leonidas Duong Primary Care Provider: Monserrat Bennett Home Meds and New Rx's Prescriptions: No Action B-complex with vitamin C Tablet 1 tab PO DAILY RF: 0 ascorbic acid (vitamin C) 250 mg tablet 250 mg PO DAILY RF: 0 magnesium 200 mg tablet 200 mg PO HS RF: 0 ibuprofen 200 mg Tablet 400 mg PO Q6H PRNRF: 0 ketorolac 10 mg tablet 10 mg PO TID PRN PRNRF: 0 ondansetron 4 mg tablet,disintegrating 4 mg PO TID PRN (Reason: nausea and vomiting) Qty: 6 RF: 0 tramadol 50 mg tablet 50 mg PO TID PRN (Reason: pain) Qty: 10 RF: 0 Discharge Instructions Additional Instructions: Followup 2 to 4 days for stent removal - tell my office there is a string on her stent Followup in 6 to 8 weeks with renal ultrasound/stone analysis No need to strain urine Activity:: Activity as Tolerated Shower/Bathe:: 24 hours Diet:: As Tolerated Discharge Orders Discharge Orders: Discharge Order (Routine); Ordered 02/17/21 Ordered By: Leonidas Duong DS: Diagnosis Discharge Diagnosis (1) Left ureteral stone: Status: Acute
[2021-02-17 08:46] VITALS: BP 93/56; PULSE 78; RESP 16; TEMP 36.4; O2SAT 93
--- NOTE | 2021-02-17 08:48 | W.PM.OP ---
Date of service: 02/17/21 Time of Service: 08:48 Operative Note Operative Note DATE OF PROCEDURE: 02/17/21 PRE-OP DIAGNOSIS: Left ureteral stone POST-OP DIAGNOSIS: same PROCEDURE: Cystoscopy, left ureteral dilation, left ureteroscopy with holmium laser lithotripsy of ureteral stone, basket extraction of stone fragments, left retrograde pyelogram, insert left ureteral stent ANESTHESIA TYPE: General:No Airway Refer to Anesthesia Record ESTIMATED BLOOD LOSS: 25 PATHOLOGY: other (stone for chemical analysis) COMPLICATIONS: None Patient was transported to: PACU Patient's condition: stable Implants: 4.8 Croatian by 22 to 30 cm left ureteral stent Indications: This is a 40-year-old woman who has a history of a left ureteral stone. She was initially diagnosed back in September 2020. Her stone was in the proximal ureter at that time. She was treated conservatively and her symptoms improved. She did not pass her stone. A renal ultrasound showed resolution of her hydronephrosis. About 1 week ago, she presented back to the emergency room with renal colic. Her stone had migrated to the left distal ureter and remains symptomatic. She presents for stone manipulation Findings: Impacted left ureteral stone at UVJ Procedure Description: The patient was given preoperative antibiotics. She was brought to the operating room on 02/17/2021. After successful induction of general anesthesia, she was placed in the dorsal lithotomy position. Her genitalia was prepped and draped. 2% Xylocaine jelly was instilled into the urethra to act as a local anesthetic. A 22 Croatian rigid cystoscope was passed through the urethra into the bladder. The bladder was inspected with a 30 degree lens. The right ureteral orifice appeared normal, but the left orifice was markedly edematous. I was able to pass a 6 Croatian access catheter just into the orifice. But I was unable to pass the access catheter above the level of the radiopaque stone. I was able to maneuver a Glidewire above the level of the stone all the way up to the kidney. I then removed the access catheter and passed a UroMax balloon over the wire. I was able to dilate the distal ureter using the UroMax balloon. After the ureteral dilation, I was able to pass a semirigid ureteroscope through the urethra and engaged the scope into the left ureteral orifice. The distal ureteral stone was visible and appeared impacted. I was able to treat the stone with a 365 holmium laser fiber. We utilize dusting settings with a power of 200 and rate 8. Eventually, we were able to fragment the stone so that it was mobile. I was then able to grasp the fragments in a [employer] stone basket and removed them in their entirety. Reintroduction of the ureteroscope showed no remaining stone fragments. We removed the ureteroscope and passed a 6 Croatian access catheter back over the guidewire. We removed the wire and did a retrograde pyelogram. The pyelogram showed no extravasation of contrast from the ureter but there is residual ureteral dilation. No filling defects were seen. We elected to place a ureteral stent. We chose a 4.8 Croatian variable length stent and advanced the stent over the Glidewire. The proximal end of the stent was seen curled within the renal pelvis fluoroscopically. The distal and was seen curled within the bladder cystoscopically and fluoroscopically. The safety string was left in place and brought through the patient's urethra. The end of the string was tucked into the patient's vaginal cavity. All stone fragments that were removed were sent to pathology for chemical analysis. The patient tolerated this procedure well. She was taken to the recovery room in stable condition.
[2021-02-17 08:51] VITALS: BP 113/60; PULSE 80; RESP 16; O2SAT 97
[2021-02-17 08:56] VITALS: BP 108/85; PULSE 74; RESP 17; O2SAT 96
[2021-02-17 09:01] VITALS: BP 113/82; PULSE 73; RESP 15; O2SAT 98
[2021-02-17] MEDS: Phenazopyridine 200 MG TAB PO (09:33)
[2021-02-17 09:54] VITALS: BP 111/82; PULSE 65; RESP 16; TEMP 36.5; O2SAT 100
[2021-02-20 00:23] LABS: Source: Left Ureter
== END 2021-02-17 10:20 | disposition home or self-care (01) ==
PROVIDERS: PCP Nurse Practitioner Adult Health; Visit Provider Urology
PROC: (CPT 52356; principal; 2021-02-17 07:30)
DX: N20.1 Calculus of ureter (principal)
CPT/HCPCS: 52356; 52344; NC; 74420; 82365; J0131; J1100; J2001; J2405; J2704; Q9967

== ENCOUNTER 2021-06-30 01:55 | Outpatient (CLI) | payer MEDICAID, SELFPAY ==
--- NOTE | 2021-06-30 | DI.US_ITS ---
Exam(s) US RENAL EXAM: US RENAL CLINICAL HISTORY: LT URETERAL STONE, N20.1,? HYDRONEPHROSIS AFTER URETEROSCOPY. TECHNIQUE: Jang scale, color and spectral Doppler were used. COMPARISON: US US RENAL from 12/09/2020 FINDINGS: Renal size in cm: Right: 10.2. Left: 11.4. Echogenicity: Normal. Hydronephrosis: Mild left hydronephrosis. Cyst or mass: No. Nephrolithiasis: No. Other findings: None. Bladder:Normal. Ureteral jets: Right: Visualized and unremarkable. Left: Visualized and unremarkable. Prevoid vol:146 cc Postvoid vol:10 cc Renal color flow: Symmetric and within normal limits. IMPRESSION: Mild left hydronephrosis. DATA REPOSITORY:
== END 2021-06-30 02:15 ==
PROVIDERS: PCP Nurse Practitioner Adult Health; Visit Provider Urology
DX: N20.1 Calculus of ureter (principal); N13.2 Hydronephrosis with renal and ureteral calculous obstruction
CPT/HCPCS: 76770

== ENCOUNTER 2021-07-04 00:30 | Emergency (ER) | payer MEDICAID, SELFPAY ==
[2021-07-04 00:31] VITALS: BP 127/73; PULSE 87; RESP 18; TEMP 36.5; O2SAT 97
--- NOTE | 2021-07-04 00:41 | ED.GENADUL_ITS ---
Discharge Plan Disposition Patient Disposition: HOME Condition: Good Discharge Details Clinical Impression: Seizure Primary Care Provider: Monserrat Bennett ED Provider: Govind Cooper Meds and New Rx's Prescriptions: No Action ibuprofen 200 mg Tablet 200 mg PO Q6H PRNRF: 0 Discharge Instructions Additional Instructions: Laboratory studies look fine tonight. Due to previous reaction to seizure medications, we will hold off starting anything new until you can discuss with Dr. Lozoya. However, you must adhere to seizure precautions and avoid driving, swimming, heights, until she clears you for same. Be sure to get plenty of sleep. Contact Dr. Lozoya's office today for follow-up. Return to the ED for any severe headache, neurologic change, recurrent/frequent or prolonged seizures. Referrals: Usha Lozoya MD [ [facility] STAFF PHYSICIAN] - Medical Decision Making Patient presenting with what sounds like generalized seizure with prior history of focal seizures but no previous generalized seizure. Currently on no medications. At this point back to baseline and normal neurologically. Has had previous imaging including MRI of the brain. Since back to baseline and non- focal do not feel emergent imaging tonight is necessary. I will check basic labs especially the electrolytes, urinalysis, urine drug screen. Laboratory studies are unremarkable. Specifically electrolytes are fine, urinalysis and urine drug screen negative. No recurrent seizures here and no neurologic symptomatology. Because of previous reactions to medications including Keppra and lamotrigine and due to her relationship with Dr. Lozoya, will hold off starting any new antiepileptics. Patient will call the office for follow-up. I will reach out to Dr. Lozoya directly. Patient to adhere to seizure precautions until cleared by Dr. Lozoya. Medical Records Medical records reviewed: Yes I reviewed the patient's medical records. Lab Data Lab results reviewed: Yes I reviewed the patient's lab results. HPI General Mode of arrival: EMS . Date/Time Provider Initiated Documentation: 07/04/21 00:30 . Limitations to Documentation: no limitations . Information obtained by: patient, EMS, RN notes reviewed and old records reviewed . HPI Narrative: Patient presents to ED by ambulance with possible tonic-clonic seizure at home. Patient does have history of focal seizures but is currently not on any medications. She is followed by Dr. Lozoya from neurology. She has never had generalized tonic-clonic seizures. Tonight after getting ready for bed she suffered loss of consciousness with generalized body shaking and rhythmic jerking as witnessed by significant other and son. She was not incontinent. She feels like she bit her lip but not her tongue. She was a little confused post and still feels foggy at this time. She is currently on no medications. She denies any drug use. She is not a daily drinker. She has not been ill. She denies fever, headache, neck pain, neurologic change, urinary symptoms. Related Data Home Medications Medication Instructions Recorded Confirmed ibuprofen 200 mg PO Q6H PRN 07/04/21 07/04/21 Allergies Allergy/AdvReac Type Severity Reaction Status Date / Time clindamycin Allergy Severe Anaphylaxsi Unverified 02/14/21 12:11 s Penicillins Allergy Intermediate Hives Unverified 02/14/21 12:11 Sulfa (Sulfonamide Allergy Skin Rash Unverified 02/14/21 12:11 Antibiotics) tamsulosin [From Flomax] AdvReac Severe Verified 02/14/21 12:11 tramadol AdvReac Verified 02/17/21 07:04 General Stated Complaint: Seizure DINO: 2 Review of Systems Narrative: As documented in HPI otherwise negative as below. Const: no fever, chills, weakness Resp: no cough, SOB, pleuritic pain CV: no CP, diaphoresis, edema, syncope GI: no abdominal pain, nausea, vomiting, diarrhea Neuro: no headache, numbness, focal weakness, confusion PFSH Medical History Focal epilepsy Last seizure 02/13/21, pt states it was aggrivated by the medications she recieved in the ER Kidney stone Left ureteral stone Migraine headache without aura Thrombocytopenia pt. unaware of this diagnosis Surgical History S/P section x2 Family History Father Hypertension Brother Asthma Social History Smoking/Tobacco Use Status: Current every day Tobacco Type: cigarettes Years smoked: 8 Tobacco: How many years used: 8 Smoking risk assessment performed?: Yes Alcohol Intake: current Alcohol Intake frequency: holidays/special occasions only Alcohol type: beer Drug use: Never Substance use type: does not use Household members: significant other and children Number of Children: 2 current occupation: Massage Therapist Seatbelt use: always Do you feel safe at home: Yes Do you feel safe in your relationship?: Yes Exam Narrative Exam Narrative: Const: WDWN female in NAD. HEENT: NC/AT. Normal facial exam. Eyes: PERRL and EOMI. Normal conjunctiva and sclera. Neck: Supple. Trachea midline. Lungs: Normal respiratory effort. Lungs are clear. Cor: RRR without murmur/gallop. Good radial pulses. Neuro: A+O x 3. Normal speech, mentation. Cranial nerves II - XII grossly intact. No gross motor or sensory deficit. Non-focal. Ext: No C/C/E. Skin: Warm and dry without rash. Course Vital Signs Vital signs: Vital Signs Temperature 97.7 F 07/04/21 00:31 Pulse 87 07/04/21 00:31 Respiratory Rate 18 07/04/21 00:31 Blood Pressure 127/73 07/04/21 00:31 Pulse Oximetry 97 07/04/21 00:31 Temperature 97.7 F 07/04/21 00:31 Temperature Source Tympanic 07/04/21 00:31 Pulse 87 07/04/21 00:31 Respiratory Rate 18 07/04/21 00:31 Blood Pressure 127/73 07/04/21 00:31 Blood Pressure Position Supine 07/04/21 00:31 Pulse Oximetry 97 07/04/21 00:31 Oxygen Delivery Method Room Air 07/04/21 00:31 Oxygen Flow Rate 0 07/04/21 00:31 Pain Level 0 07/04/21 00:31
[2021-07-04 01:00] LABS: Abs Immature Grans 0.02 10^3/uL (0.0-0.06); Absolute Basophil Count 0.08 10^3/uL (0.0-0.2); Absolute Eosinophil Count 0.36 10^3/uL (0.0-0.7); Absolute Lymphocyte Count 2.27 10^3/uL (1.2-3.4); Absolute Monocyte Count 0.48 10^3/uL (0.1-0.8); Absolute Neutrophil Count 4.45 10^3/uL (1.2-6.7); Eosinophils % 4.7; HCT 38.2 % (36.0-46.0); HGB 12.9 g/dL (11.2-15.7); Immature Grans % 0.3; Lymphocytes % 29.6; MCH 31.2 pg (27.0-33.0); MCHC 33.8 % (32.0-36.0); MCV 92.3 fL (80-95); MPV 11.3 fL (8.0-11.0); Monocytes % 6.3; Neutrophils % 58.1; Nucleated RBC 0 %; Platelet Count 147 10^3/uL (130-400); RBC 4.14 10^6/uL (3.93-5.22); RDW 11.9 % (11.7-14.6); RDW-SD 40.8 fL; WBC 7.66 10^3/uL (4.4-10.8)
[2021-07-04 01:09] LABS: Bilirubin Negative (Negative); Blood Small (Negative); Clarity Clear (Clear); Glucose Negative (Negative); Ketones Negative (Negative); Leukocyte Esterase Negative (Negative); Nitrite Negative (Negative); Specific Gravity 1.025 (1.005-1.025); Urobilinogen 0.2 EU/dL (Up TO 0.2); pH 6.5 (5-8)
[2021-07-04 01:10] LABS: Magnesium 1.8 mg/dL (1.8-2.4)
[2021-07-04 01:14] LABS: Bacteria Negative HPF (Negative); C & S Indicated? No; Casts Negative LPF (Negative); Crystals Negative HPF (Negative); Epithelial Cells Negative HPF (Negative); Mucus Negative (Negative); WBC Negative HPF (0-5)
--- NOTE | 2021-07-04 01:17 | NUR.NOTE ---
Nursing Note: Patient reports that she is having increased but intermittent waves of fuzziness since admission and has a slight headache. No objective assessments that deviate from baseline. MD notified. No new orders at this time. Patient resting in bed, monitors in place, seizure pads in place and friend at bedside. Call light within reach.
[2021-07-04 01:19] LABS: *AMPHETAMINES SCREEN URINE Negative (Negative); *BARBITURATES SCREEN URINE Negative (Negative); *BENZODIAZEPINES SCREEN URINE Negative (Negative); Cannabinoids THC Negative (Negative); Cocaine Screen,Urine Negative (Negative); METHADONE URINE SCREEN Negative (Negative); OPIATES URINE SCREEN Negative (Negative)
[2021-07-04 01:22] LABS: ALT 48 U/L (14-59); AST 30 U/L (15-37); Albumin 3.8 g/dL (3.4-5.0); Alkaline Phosphatase 60 U/L (46-116); Anion Gap 8.5 mmol/L (3-11); BUN 15 mg/dL (7-18); Bilirubin, Total 0.2 mg/dL (0.2-1.0); CO2 28.5 mmol/L (21.0-32.0); CREATININE 0.9 mg/dL (0.55-1.02); Calcium 8.8 mg/dL (8.5-10.1); Chloride 103 mmol/L (98-107); Glucose 104 mg/dL (74-106); Potassium 3.4 mmol/L (3.5-5.1); Sodium 140 mmol/L (136-145); TSH (W/Ref FT4) 6.83 uIU/mL (0.36-3.74); Total Protein 7.1 g/dL (6.4-8.2)
[2021-07-04 01:22] LABS: Tricyclic Antidepressants Negative (Negative)
[2021-07-04 01:35] VITALS: BP 112/74; PULSE 82; RESP 17; TEMP 36.6; O2SAT 96
[2021-07-04 01:38] LABS: FREE T4 0.88 ng/dL (0.76-1.46)
--- NOTE | 2021-07-04 01:48 | NUR.NOTE ---
Nursing Note: MD at bedside speaking with patient.
[2021-07-04 01:56] VITALS: BP 116/73; PULSE 69; RESP 20; TEMP 36.1; O2SAT 96
== END 2021-07-04 02:10 | disposition home or self-care (01) ==
PROVIDERS: Emergency Provider Emergency Medicine; PCP Nurse Practitioner Adult Health
DX: G40.109 Localization-related (focal) (partial) symptomatic epilepsy and epileptic syndromes with simple partial seizures, not intractable, without status epilepticus (principal)
CPT/HCPCS: 80053; 80307; 81025; 99282; 81003; 81015; 83735; 84439; 84443; 85025; 99283

== ENCOUNTER 2022-01-20 15:12 | Observation (INO) | payer MEDICAID, SELFPAY ==
[2022-01-20] VITALS (74 sets, daily range): BP systolic 93–125; BP diastolic 51–84; PULSE 72–99; RESP 9–30; TEMP 36.1–36.6; O2SAT 92–100
--- NOTE | 2022-01-20 15:30 | DI.CT_ITS ---
Exam(s) CT HEAD WO EXAM: CT HEAD WO CLINICAL HISTORY: headache recurrent seizure. TECHNIQUE: Imaging Protocol: Axial computed tomography images with coronal and sagittal reformatted images were created and reviewed COMPARISON: No exams were available for comparison FINDINGS: There are no skull fractures nor fluid in the visualized paranasal sinuses. There is no evidence of intracranial hemorrhage, mass effect, or shift of midline structures. There are no extra-axial fluid collections. The ventricles are not enlarged or shifted and there is no blo od within the ventricular system nor within the basal cisterns. IMPRESSION: No acute intracranial findings on this noninfused CT scan of the brain. RADIATION DOSE DELIVERED: 731.08mGy.cm Total DLP DATA REPOSITORY: All CT scans at this facility are submitted to the National Radiology Data Registry (NRDR) Dose Index Registry (DIR) with the [employer] (ACR). RADIATION OPTIMIZATION: All CT scans at this facility use at least one of these dose optimization te chniques: automated exposure control; mA and/or kV adjustment per patient size (includes targeted exa ms where dose is matched to clinical indication); or iterative reconstruction.
--- NOTE | 2022-01-20 15:30 | RT.EKG_ITS ---
APPROVED REPORT Exam: Resting ECG Reason for Exam: seizure Patient Location: E HR:95 bpm ECG Measurements Heart Rate 95 AXIS NV 190 P 65 QRSd 72 QRS -14 QT 348 T 5 QTc 438 Conclusion Sinus rhythm...normal P axis, V-rate 60- 99 Low voltage, precordial leads...precordial leads <1.0mV Sinus Rhythm sinus rhythm, leftaxis, consider poor baseline/J poiint elevtion lead V2
[2022-01-20] MEDS: LORazepam 2 MG/ML VIAL 1 MG IVP (16:00)
[2022-01-20] MEDS: levETIRAcetam 500 MG in Normal Saline 100 ML 400 MG IVPB (16:01)
[2022-01-20] MEDS: Normal Saline 1,000 ML 1000 ML IV (16:01)
--- NOTE | 2022-01-20 16:06 | W.ED.GENAD ---
Discharge Plan Disposition Patient Disposition: [facility] INPATIENT Condition: Fair Discharge Details Clinical Impression: Seizures Admit Date/Time: 01/20/22 18:24 Admit Provider: Eren Moreau Attending Provider: Eren Moreau Primary Care Provider: Monserrat Bennett ED Provider: Renea Naylor Discharge Data Discharge Date/Time-TO BE ENTERED AT DEPARTURE: 01/20/22 19:15 Medical Decision Making <LISANDRA Ramirez Last Filed: 01/21/22 10:54> Given patient has had 3 seizures today, I did order IV Keppra 500 mg and 1 mg of Ativan, patient is alert and oriented although tired on initial assessment, seizure H She has a nonfocal neurological exam without any visible evidence of trauma is in the room and very helpful with history Did order CT scan, diagnostic lab and patient will need neurology consultation Disposition to be determined by oncoming providerRenea pending reassessment and dx Medical Records Medical records reviewed: Yes I reviewed the patient's medical records. Lab Data Lab results reviewed: Yes I reviewed the patient's lab results. <LISANDRA Bright - Last Filed: 01/20/22 18:39> Given patient has had 3 seizures today, I did order IV Keppra 500 mg and 1 mg of Ativan, patient is alert and oriented although tired on initial assessment, seizure H She has a nonfocal neurological exam without any visible evidence of trauma is in the room and very helpful with history Did order CT scan, diagnostic lab and patient will need neurology consultation Disposition to be determined by oncoming providerRenea pending reassessment and dx Care transition myself from Merlyn Andujar PA-C. Please see her initial note regarding history, presentation and exam. In brief, patient is a pleasant 41-year-old female, accompanied by significant other, with chief complaint of 3 witnessed seizures today. Patient significant other reports patient is known seizure disorder, has been worked up by [facility] neurology. States that she has not been able to tolerate antiepileptics, was reported to have significant side effects to any medications and is been hesitant to take any. He describes tonic-clonic movement, typically in her sleep. States that prior to today, she been having seizures approximately every 4 to 6 weeks. However, today she had witnessed seizures at 1:30 AM, 3:30 AM and then again at 1:30 in the afternoon. At the time I assumed care, labs and imaging pending. Patient had received loading dose of Keppra and Ativan. Patient is currently sleeping. Labs reviewed. Significant for white count of 14.2. Patient is anemic. Potassium slightly low at 3.4, otherwise without significant abnormality Imaging reviewed by radiologist: FINDINGS: Brain: Normal. No hemorrhage. Unremarkable white matter. No mass effect. Cerebral ventricles: No ventriculomegaly. Paranasal sinuses: Visualized sinuses are unremarkable. No fluid levels. Mastoid air cells: Visualized mastoid air cells are well aerated. Bones/joints: Unremarkable. No acute fracture. Soft tissues: Unremarkable. IMPRESSION: No acute intracranial abnormality. Reviewed records from [facility]. Patient last had MRI brain in 09/01/2021. When I can see, patient was last seen in the office on 08/04/2021. Reviewing the chart, it appears that patient was on Keppra but only took this for 2 to 3 days secondary to feeling irritable as well as lamotrigine, stopped after 2 months. Again, medication was stopped secondary to mood dysregulation. Will consult with [facility] neurology regarding recurrent seizure activity today. Consulted with neurology, Dr. Garsia at [facility]. Based on history, difficulty with mood reguation, recommended Depakote. Recommends we need to check on child bearing wishes, can cause neuro tube defects. Advised patient should have the EEG that had previously been ordered. He is concerned that patient has been lost to f/u. Recommended 500 BID Depakote. He agreed with plan to admit patient today. Advised we could start the Depakote tonight. Recommended scheduling appointment with their office, none is currently scheduled. Recommended EEG, if possible while inpatient as she has not f/u historically. Patient is still very fatigued, concerned about haivng a chat regarding future fertility. Spoke with patient's , Raymundo [phone]. He advised that I should discuss this with patient once she is awake. He does not believe she is wanting more children, is perimenopausal. However, he felt that this should be discussed more with patient prior to starting. He advised that prior to today's episodes, she was very stressed and sleep deprived. Consulted with Dr. Moreau who agrees to admission for continued care after 3 witnessed seizures earlier today. HPI <LISANDRA Ramirez - Last Filed: 01/21/22 10:54> General Date/Time Provider Initiated Documentation: 01/20/22 15:27. HPI Narrative: This 41-year-old female with history of TBI and seizures presents with report of seizures today. She had an episode at 330 this morning, 430 this morning of tonic-clonic seizure-like activity witnessed by her . This was subsequently followed by another tonic-clonic seizure at approximately 130 this afternoon. The morning seizures lasted for approximately 4 minutes and disappear this afternoon lasted for approximately 5 minutes. Patient was not easily arousable for approximately an hour after the afternoon event which concerned that this is atypical for patient. Is also atypical for patient to have 3 seizures in 1 day. She reportedly is managed at [facility] neurology but not currently taking any antiepileptic as she has not tolerated them well. She is not given any medication at home. She does not drink on a regular basis but did have 3 sips of beer just prior to her seizure at 130. She does not use any illicit drugs. She denies any recurrent falls or injuries. Her TBI was approximately 14 years ago. She states her last seizure prior to this was approximately 6 weeks ago. Related Data Home Medications Medication Instructions Recorded Confirmed ibuprofen 200 mg tablet 200 mg PO Q6H PRN 07/04/21 01/20/22 ascorbate calcium (vitamin C) 500 500 mg PO DAILY 07/15/21 01/20/22 mg tablet brivaracetam 25 mg tablet 25 mg PO .COMPLEX #60 tab 07/15/21 07/15/21 (Briviact) cholecalciferol (vitamin D3) 50 50 mcg PO DAILY 07/15/21 01/20/22 mcg (2,000 unit) capsule magnesium oxide-magnesium amino 1 - 2 cap PO cap 07/15/21 07/15/21 acid chelate 300 mg capsule (Magnesium (oxide/AA chelate)) vitamin B complex (B 1 tab PO DAILY 07/15/21 01/20/22 Complex-Vitamin B12) Previous Rx's Medication Instructions Recorded brivaracetam 25 mg tablet 25 mg PO .COMPLEX #60 tab 07/15/21 (Briviact) Allergies Allergy/AdvReac Type Severity Reaction Status Date / Time clindamycin Allergy Severe Anaphylaxsi Unverified 01/20/22 15:19 s Penicillins Allergy Intermediate Hives Unverified 01/20/22 15:19 Sulfa (Sulfonamide Allergy Skin Rash Unverified 01/20/22 15:19 Antibiotics) tamsulosin [From Flomax] AdvReac Severe aggravates Verified 01/20/22 15:19 seizure activity tramadol AdvReac Verified 01/20/22 15:19 General Stated Complaint: Seizure DINO: 2 Review of Systems <LISANDRA Ramirez - Last Filed: 01/21/22 10:54> All systems reviewed & are unremarkable except as noted in HPI and below PFSH <LISANDRA Ramirez - Last Filed: 01/21/22 10:54> All Active Problems (Updated 01/20/22 @ 22:59 by Eren Moreau) Seizures (Acute) Focal epilepsy (Acute) Last seizure 02/13/21, pt states it was aggrivated by the medications she recieved in the ER Seizure (Acute) Medical History (Updated 01/20/22 @ 22:59 by Eren Moreau) Kidney stone Kidney stone Left ureteral stone Migraine headache without aura Thrombocytopenia pt. unaware of this diagnosis Surgical History (Updated 01/20/22 @ 22:58 by Eren Moreau) S/P section x2 S/P cystoscopy Family History Father Hypertension Brother Asthma Social History Smoking/Tobacco Use Status: Current every day Tobacco Type: cigarettes Years smoked: 8 Tobacco: How many years used: 8 Smoking risk assessment performed?: Yes Alcohol Intake: current Alcohol Intake frequency: holidays/special occasions only Alcohol type: beer Drug use: Never Substance use type: does not use Household members: significant other and children Number of Children: 2 current occupation: Massage Therapist Seatbelt use: always Do you feel safe at home: Yes Do you feel safe in your relationship?: Yes Exam <LISANDRA Ramirez - Last Filed: 01/21/22 10:54> Const General: cooperative, comfortable and no acute distress Orientation: alert and oriented x3 HENMT Head: normal to inspection Other: No intraoral trauma Eyes Pupils: PERRL Resp Effort & Inspection: normal respiratory effort Cardio Rate: regular rate Rhythm: regular rhythm Skin General skin exam: no rashes or lesions noted Neuro General: patient alert and patient oriented x3 Cranial Nerves: CN's II-XI intact bilaterally and PERRL Cognition: normal cognition Speech: speech normal Course <LISANDRA Ramirez - Last Filed: 01/21/22 10:54> Vital Signs Vital signs: Vital Signs Temperature 36.1 C L 01/20/22 15:14 Pulse 90 01/20/22 15:14 Respiratory Rate 14 01/20/22 15:14 Blood Pressure 125/81 01/20/22 15:14 Pulse Oximetry 100 01/20/22 15:14 Temperature 36.1 C L 01/20/22 15:14 Temperature Source Temporal Artery Scan 01/20/22 15:14 Pulse 90 01/20/22 15:14 Respiratory Rate 14 01/20/22 15:14 Respiratory Effort Non-Labored 01/20/22 15:17 Blood Pressure 125/81 01/20/22 15:14 Blood Pressure Position Supine 01/20/22 15:14 Pulse Oximetry 100 01/20/22 15:14 Oxygen Delivery Method Room Air 01/20/22 15:14 Oxygen Flow Rate 0 01/20/22 15:14 Pain Level 8 01/20/22 15:14 Sign Out <LISANDRA Ramirez - Last Filed: 01/21/22 10:54> Sign Out Data: Sign Out Comment: pending labs, ct, meds, and neuro con Last updated by Merlyn Andujar PA at 01/20/22 16:11
[2022-01-20 16:26] LABS: HCG Qual (Serum) Negative
[2022-01-20] MEDS: ACETAMINOPHEN 1,000 MG/100 ML BTL 400 MG IVPB (16:33)
[2022-01-20 16:38] LABS: ALT 44 U/L (14-59); AST 25 U/L (15-37); Albumin 3.8 g/dL (3.4-5.0); Alkaline Phosphatase 60 U/L (46-116); Anion Gap 8.3 mmol/L (3-11); BUN 9 mg/dL (7-18); Bilirubin, Total 0.3 mg/dL (0.2-1.0); CO2 26.7 mmol/L (21.0-32.0); CREATININE 0.8 mg/dL (0.55-1.02); Calcium 8.7 mg/dL (8.5-10.1); Chloride 105 mmol/L (98-107); Glucose 105 mg/dL (74-106); Magnesium 2.3 mg/dL (1.8-2.4); Potassium 3.4 mmol/L (3.5-5.1); Sodium 140 mmol/L (136-145); TSH (W/Ref FT4) 0.96 uIU/mL (0.36-3.74); Total Protein 7.1 g/dL (6.4-8.2)
[2022-01-20 16:40] LABS: Abs Immature Grans 0.06 10^3/uL (0.0-0.06); Absolute Lymphocyte Count 0.78 10^3/uL (1.2-3.4); Absolute Monocyte Count 0.61 10^3/uL (0.1-0.8); Basophils % 0.4; HCT 38.9 % (36.0-46.0); Immature Grans % 0.4; Lymphocytes % 5.5; MCH 31.2 pg (27.0-33.0); MCHC 33.4 % (32.0-36.0); MCV 93.3 fL (80-95); Monocytes % 4.3; Neutrophils % 89.4; Nucleated RBC 0 %; Platelet Count 170 10^3/uL (130-400); RBC 4.17 10^6/uL (3.93-5.22); RDW 12.7 % (11.7-14.6); RDW-SD 43.8 fL; WBC 14.22 10^3/uL (4.4-10.8)
[2022-01-20 17:02] LABS: Absolute Basophil Count 0.06 10^3/uL (0.0-0.2); Absolute Neutrophil Count 12.71 10^3/uL (1.2-6.7)
--- NOTE | 2022-01-20 17:18 | DI.VRAD_ITS ---
PROCEDURE INFORMATION: Exam: CT Head Without Contrast Exam date and time: 01/20/2022 4:56 PM Age: 41 years old Clinical indication: Other: Headache recurrent seizure TECHNIQUE: Imaging protocol: Computed tomography of the head without contrast. Total images: 988 Radiation optimization: All CT scans at this facility use at least one of these dose optimization techniques: automated exposure control; mA and/or kV adjustment per patient size (includes targeted exams where dose is matched to clinical indication); or iterative reconstruction. COMPARISON: No relevant prior studies available. FINDINGS: Brain: Normal. No hemorrhage. Unremarkable white matter. No mass effect. Cerebral ventricles: No ventriculomegaly. Paranasal sinuses: Visualized sinuses are unremarkable. No fluid levels. Mastoid air cells: Visualized mastoid air cells are well aerated. Bones/joints: Unremarkable. No acute fracture. Soft tissues: Unremarkable. IMPRESSION: No acute intracranial abnormality. Dictated and Authenticated by: Sergio Terrazas MD. Ordering:HUSSEIN Zuleta MD
[2022-01-20 18:23] LABS: Source Nasal/Nares
[2022-01-20 19:05] LABS: Bilirubin Negative (Negative); Blood Negative (Negative); Clarity Clear (Clear); Glucose Negative (Negative); Ketones 15 mg/dL (Negative); Leukocyte Esterase Negative (Negative); Nitrite Negative (Negative); Urobilinogen 0.2 EU/dL (Up TO 0.2); pH 6.5 (5-8)
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
[2022-01-20] MEDS: Enoxaparin 40 MG/0.4 ML SYR SC (22:03)
--- NOTE | 2022-01-20 22:47 | NUR.NOTE ---
Nursing Note records requested and received from [facility] for MRI, new request faxed 01/20/22 [phone] for any eeg reports. has reviewed the MRI
[2022-01-21] VITALS (84 sets, daily range): BP systolic 87–108; BP diastolic 55–76; PULSE 59–101; RESP 6–23; TEMP 36.1–36.8
[2022-01-21 00:17] LABS: COVID-19 PCR Negative (Negative)
[2022-01-21 06:51] LABS: Abs Immature Grans 0.03 10^3/uL (0.0-0.06); Absolute Basophil Count 0.05 10^3/uL (0.0-0.2); Absolute Eosinophil Count 0.04 10^3/uL (0.0-0.7); Absolute Monocyte Count 0.49 10^3/uL (0.1-0.8); Absolute Neutrophil Count 7.06 10^3/uL (1.2-6.7); Basophils % 0.5; Eosinophils % 0.4; HCT 38.2 % (36.0-46.0); HGB 12.4 g/dL (11.2-15.7); Immature Grans % 0.3; Lymphocytes % 21.5; MCH 30.7 pg (27.0-33.0); MCHC 32.5 % (32.0-36.0); MCV 94.6 fL (80-95); MPV 11.3 fL (8.0-11.0); Neutrophils % 72.3; Nucleated RBC 0 %; Platelet Count 158 10^3/uL (130-400); RBC 4.04 10^6/uL (3.93-5.22); RDW 12.9 % (11.7-14.6); RDW-SD 45.1 fL; WBC 9.77 10^3/uL (4.4-10.8)
--- NOTE | 2022-01-21 06:59 | NUR.NOTE ---
pt has not voided yet. She reports feeling dry with chapped lips. No running fluids. Pt does not have urge to void yet. Bladder scan showed 200ml of urine in the bladder. Nursing Note:
[2022-01-21 07:03] LABS: Anion Gap 9.2 mmol/L (3-11); BUN 9 mg/dL (7-18); CO2 25.8 mmol/L (21.0-32.0); CREATININE 0.8 mg/dL (0.55-1.02); Calcium 8.3 mg/dL (8.5-10.1); Chloride 107 mmol/L (98-107); Glucose 85 mg/dL (74-106); Potassium 3.3 mmol/L (3.5-5.1); Sodium 142 mmol/L (136-145)
[2022-01-21 07:16] LABS: Lab Add On Test DONE
[2022-01-21 07:29] LABS: Creatine Kinase 79 U/L (26-192)
[2022-01-21] MEDS: Potassium Chloride 20 MEQ TABCR 40 MEQ PO (07:54)
[2022-01-21] MEDS: Cholecalciferol (Vitamin D3) 1,000 UNIT TAB 2000 UNITS PO (09:35)
[2022-01-21 11:04] LABS: *AMPHETAMINES SCREEN URINE Negative (Negative); *BARBITURATES SCREEN URINE Negative (Negative); *BENZODIAZEPINES SCREEN URINE Negative (Negative); Cannabinoids THC Negative (Negative); Cocaine Screen,Urine Negative (Negative); METHADONE URINE SCREEN Negative (Negative); OPIATES URINE SCREEN Negative (Negative); Tricyclic Antidepressants Negative (Negative)
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
--- NOTE | 2022-01-21 16:17 | DSE_ITS ---
Date of service: 01/21/22 Time of Service: 16:17 DS: Diagnosis Discharge Diagnosis (1) Seizures: Status: Acute (2) Focal epilepsy: Status: Acute Discharge Plan Disposition Patient Disposition: HOME Condition: Stable Discharge Details Reason For Visit: Seizure Disorder Admit Date/Time: 01/20/22 18:24 Admit Provider: Eren Moreau Attending Provider: Eren Moreau Primary Care Provider: Monserrat Bennett Hospital Course Hospital Course: Ms Cornell is a 41 year old female with known h/o focal epilepsy with probable secondary generalized seizures during sleep who was observed on [facility] hospitalist service (in the ICU) from 01/20/22 until 01/21/22 after having three breakthrough seizures in the course of 12 hrs at home, all during sleep, but with more frequency than her normal (1 seizure every 6 weeks or so). The patient was not taking any anticonvulsants at home. She was loaded with keppra in the ED and did not have any recurrences of seizures during her hospitalization. She was evaluated by Dr Lozoya of neurology who recommended that the patient start taking brivact 25 mg PO QHS as previously prescribed until she follows up with her in the office. Because all of the patient's seizures happen during sleep, she is permitted to drive. The patient is medically stable for discharge home today. Care for patient as well as completion of her discharge summary on day of discharge took 45 minutes. Home Meds and New Rx's Prescriptions: Continued vitamin B complex [B Complex-Vitamin B12] Tablet 1 tab PO DAILY 0RF Magnesium (oxide/AA chelate) 300 mg capsule 1 - 2 cap PO 0RF ascorbate calcium (vitamin C) 500 mg tablet 500 mg PO DAILY 0RF Label Comments: takes when remembers cholecalciferol (vitamin D3) 50 mcg (2,000 unit) capsule 50 mcg PO DAILY 0RF ibuprofen 200 mg Tablet 200 mg PO Q6H PRN0RF Changed Briviact 25 mg tablet 25 mg PO HS Qty: 60 3RF Rx Instructions: 25 mg by mouth every night Discharge Instructions Instructions: Epilepsy (DC), Generalized Tonic Clonic Seizures (DC), Ketogenic Diet (GEN) Additional Instructions: Return to the hospital if you have seizures longer 5 minutes or multiple seizures without return to baseline in between. Follow up with Dr Lozoya in 2-3 weeks. Start taking Briviact 25 mg by mouth at night and do not change the dose until instructed to do so by Dr Lozoya. Consider going on an Atkins/Ketogenic diet which have some efficacy in preventing recurrent seizures. Stand Alone Forms: Nursing Discharge Form Referrals: Monserrat Bennett [Primary Care Provider] - Usha Lozoya MD [ [facility] STAFF PHYSICIAN] - Activity:: Activity as Tolerated Equipment/Supplies:: No Equipment Needed Diet:: As Tolerated Discharge Orders Discharge Orders: Discharge Order (Routine); Ordered 01/21/22 Ordered By: Maida Garner Discharge Data Discharge Date/Time-TO BE ENTERED AT DEPARTURE: 01/21/22 16:55 Discharge Comment: home via partner Raymundo driving DS: Summary Time Spent with Patient providing and/or coordinating discharge services: Greater than 30 minutes Status at Discharge Functional status at discharge: independent ambulation Overall status at discharge: patient is back to baseline Mental Status: mental status grossly normal Speech and Movement: speech and movement normal Mood: congruent mood Affect: normal affect Exam Narrative Exam Narrative: General: female, A&Ox3, NAD HEENT: EOMI, MMM Heart: RRR, no m/r/g Lungs: CTAB Abdomen: soft, nontender, nondistended Extremities: no edema/clubbing/cyanosis Psych Mental Status: mental status grossly normal Speech and Movement: speech and movement normal Mood: congruent mood Affect: normal affect DS: Data Vitals/I&O Vitals and I&O: Vital Signs Temperature 36.1 C L 01/21/22 14:48 Temperature Source Temporal Artery Scan 01/21/22 14:48 Pulse 66 01/21/22 16:00 Pulse 69 01/21/22 16:01 Respiratory Rate 13 01/21/22 16:01 Respiratory Effort 01/21/22 14:48 Respiratory Depth Normal 01/21/22 14:48 Respiratory Pattern Normal 01/21/22 14:48 Blood Pressure 108/75 01/21/22 16:00 Blood Pressure Mean 82 01/21/22 16:00 Blood Pressure Position Supine 01/21/22 14:48 Pulse Oximetry 93 01/20/22 20:01 Oxygen Delivery Method Room Air 01/21/22 14:48 Oxygen Flow Rate 0 01/21/22 14:48 Pain Level 0 01/21/22 14:48 Intake & Output 01/20/22 01/21/22 01/21/22 23:59 11:59 23:59 Intake Total 1205 / 1205 240 / 240 Output Total 500 / 500 Balance 1205 / 1205 -500 / -260 240 / -260 Weight 65.9 kg Intake: IV 1205 / 1205 Oral 240 / 240 Output: Urine 500 / 500 Other: Urine Color Light Reba Urine Appearance Sediment Comment stress incontinence Data Completed and Pending Completed studies during hospitalization [Text1]: CT head w/o contrast: No acute intracranial findings on this noninfused CT scan of the brain. Labs on day of discharge: Labs from last 24 hours 01/21/22 01/21/22 01/21/22 10:22 06:10 06:10 WBC RBC Hgb Hct MCV MCH MCHC RDW Plt Count MPV Immature Gran % Neutrophils % Lymphocytes % Monocytes % Eosinophils % Basophils % Nucleated RBC % Absolute Neutrophils Absolute Lymphocytes Absolute Monocytes Absolute Eosinophils Absolute Basophils Sodium Potassium Chloride Carbon Dioxide Anion Gap BUN Creatinine Estimated GFR/1.73 m2 Glucose Calcium Magnesium Total Bilirubin AST ALT Alkaline Phosphatase Creatine Kinase 79 Total Protein Albumin TSH Serum HCG, Qual Urine Color Urine Clarity Urine pH Ur Specific [place] Urine Protein Urine Ketones Urine Blood Urine Nitrite Urine Bilirubin Urine Urobilinogen Ur Leukocyte Esterase Urine Glucose Urine Opiates Screen Negative Urine Methadone Screen Negative Ur Barbiturates Screen Negative Ur Tricyclics Screen Negative Ur Amphetamines Screen Negative U Benzodiazepines Scrn Negative Urine Cocaine Screen Negative Ur THC Screen Negative COVID-19 Source SARS-CoV-2 (PCR) Add-On Test Request DONE 01/21/22 01/21/22 01/20/22 06:10 06:10 18:55 WBC 9.77 D RBC 4.04 Hgb 12.4 Hct 38.2 MCV 94.6 MCH 30.7 MCHC 32.5 RDW 12.9 Plt Count 158 MPV 11.3 H Immature Gran % 0.3 Neutrophils % 72.3 Lymphocytes % 21.5 Monocytes % 5.0 Eosinophils % 0.4 Basophils % 0.5 Nucleated RBC % 0 Absolute Neutrophils 7.06 H Absolute Lymphocytes 2.10 Absolute Monocytes 0.49 Absolute Eosinophils 0.04 Absolute Basophils 0.05 Sodium 142 Potassium 3.3 L Chloride 107 Carbon Dioxide 25.8 Anion Gap 9.2 BUN 9 Creatinine 0.8 Estimated GFR/1.73 m2 >= 60.00 Glucose 85 Calcium 8.3 L Magnesium Total Bilirubin AST ALT Alkaline Phosphatase Creatine Kinase Total Protein Albumin TSH Serum HCG, Qual Urine Color Yellow Urine Clarity Clear Urine pH 6.5 Ur Specific [place] 1.020 Urine Protein Negative Urine Ketones 15 H Urine Blood Negative Urine Nitrite Negative Urine Bilirubin Negative Urine Urobilinogen 0.2 Ur Leukocyte Esterase Negative Urine Glucose Negative Urine Opiates Screen Urine Methadone Screen Ur Barbiturates Screen Ur Tricyclics Screen Ur Amphetamines Screen U Benzodiazepines Scrn Urine Cocaine Screen Ur THC Screen COVID-19 Source SARS-CoV-2 (PCR) Add-On Test Request 01/20/22 01/20/22 01/20/22 18:20 16:20 16:00 WBC 14.22 H RBC 4.17 Hgb 13.0 Hct 38.9 MCV 93.3 MCH 31.2 MCHC 33.4 RDW 12.7 Plt Count 170 MPV 11.0 Immature Gran % 0.4 Neutrophils % 89.4 Lymphocytes % 5.5 Monocytes % 4.3 Eosinophils % 0.0 Basophils % 0.4 Nucleated RBC % 0 Absolute Neutrophils 12.71 H Absolute Lymphocytes 0.78 L Absolute Monocytes 0.61 Absolute Eosinophils 0.00 Absolute Basophils 0.06 Sodium Potassium Chloride Carbon Dioxide Anion Gap BUN Creatinine Estimated GFR/1.73 m2 Glucose Calcium Magnesium Total Bilirubin AST ALT Alkaline Phosphatase Creatine Kinase Total Protein Albumin TSH Serum HCG, Qual Negative Urine Color Urine Clarity Urine pH Ur Specific [place] Urine Protein Urine Ketones Urine Blood Urine Nitrite Urine Bilirubin Urine Urobilinogen Ur Leukocyte Esterase Urine Glucose Urine Opiates Screen Urine Methadone Screen Ur Barbiturates Screen Ur Tricyclics Screen Ur Amphetamines Screen U Benzodiazepines Scrn Urine Cocaine Screen Ur THC Screen COVID-19 Source Nasal/Nares SARS-CoV-2 (PCR) Negative Add-On Test Request 01/20/22 16:00 WBC RBC Hgb Hct MCV MCH MCHC RDW Plt Count MPV Immature Gran % Neutrophils % Lymphocytes % Monocytes % Eosinophils % Basophils % Nucleated RBC % Absolute Neutrophils Absolute Lymphocytes Absolute Monocytes Absolute Eosinophils Absolute Basophils Sodium 140 Potassium 3.4 L Chloride 105 Carbon Dioxide 26.7 Anion Gap 8.3 BUN 9 Creatinine 0.8 Estimated GFR/1.73 m2 >= 60.00 Glucose 105 Calcium 8.7 Magnesium 2.3 Total Bilirubin 0.3 AST 25 ALT 44 Alkaline Phosphatase 60 Creatine Kinase Total Protein 7.1 Albumin 3.8 TSH 0.96 Serum HCG, Qual Urine Color Urine Clarity Urine pH Ur Specific [place] Urine Protein Urine Ketones Urine Blood Urine Nitrite Urine Bilirubin Urine Urobilinogen Ur Leukocyte Esterase Urine Glucose Urine Opiates Screen Urine Methadone Screen Ur Barbiturates Screen Ur Tricyclics Screen Ur Amphetamines Screen U Benzodiazepines Scrn Urine Cocaine Screen Ur THC Screen COVID-19 Source SARS-CoV-2 (PCR) Add-On Test Request PFSH All Active Problems Seizures (Acute) Focal epilepsy (Acute) Last seizure 02/13/21, pt states it was aggrivated by the medications she recieved in the ER Seizure (Acute) Medical History Kidney stone Kidney stone Left ureteral stone Migraine headache without aura Thrombocytopenia pt. unaware of this diagnosis Surgical History S/P section x2 S/P cystoscopy Family History Father Hypertension Brother Asthma Social History Smoking/Tobacco Use Status: Current every day Tobacco Type: cigarettes Years smoked: 8 Tobacco: How many years used: 8 Smoking risk assessment performed?: Yes Alcohol Intake: current Alcohol Intake frequency: holidays/special occasions only Alcohol type: beer Drug use: Never Substance use type: does not use Household members: significant other and children Number of Children: 2 current occupation: Massage Therapist Seatbelt use: always Do you feel safe at home: Yes Do you feel safe in your relationship?: Yes
== END 2022-01-21 16:55 | disposition home or self-care (01) ==
LOC: ER 18:37 → ICU 19:08
PROVIDERS: Internal Medicine; Physician Assistant; Admitting Provider Internal Medicine; Emergency Provider Physician Assistant; PCP Nurse Practitioner Adult Health; Visit Provider Internal Medicine
DX: G40.109 Localization-related (focal) (partial) symptomatic epilepsy and epileptic syndromes with simple partial seizures, not intractable, without status epilepticus (principal); G43.009 Migraine without aura, not intractable, without status migrainosus; D69.6 Thrombocytopenia, unspecified; N20.2 Calculus of kidney with calculus of ureter
CPT/HCPCS: 36415; 80048; 80053; 80307; 82550; 87635; 93005; 96361; 96365; 96375; 99285; J1650; 70450; 81003; 83735; 84443; 84703; 85025; 93010; 99217; 99220; G0378; J0131; J1953; J2060